=== PATIENT | male | born 1960 | race Caucasian/White ===

== ENCOUNTER 2018-05-03 00:27 | Inpatient (IN) | payer BC ==
[2018-05-03] MEDS ORDERED: Ondansetron INJ* 2 MG/ML VIAL IV ONE (01:20)
[2018-05-03] MEDS ORDERED: Morphine VIAL* 10 MG/ML 1 ML VIAL IV ONE (01:20)
--- NOTE | 2018-05-03 01:28 | ED ---
Abdominal Pain/Male - HPI Summary HPI Summary: The pt is a 57 year old male presenting to the ED BIBA with a chief complaint of ABD pain onset about 2200. The pt has a hx of GERD and responds to pepto, but he now has pain in his RUQ described as tearing down to the RLQ when he lies in a horizontal position. When he stood or sat up, it was not so bad but it did hurt. Presently, the pt is nauseous, uncomfortable, restless, and afraid to lie down flat. The pt denies vomiting, blood in urine or stool, problems urinating, headaches, or dizziness, as well as abdominal surgery. - History of Current Complaint Chief Complaint: EDAbdPain Stated Complaint: ABD PAIN Time Seen by Provider: 05/03/18 00:42 Hx Obtained From: Patient Onset/Duration: Sudden Onset, Lasting Hours, Still Present Timing: Constant Severity Initially: Severe Severity Currently: Severe Pain Intensity: 9 Pain Scale Used: 0-10 Numeric Location: Discrete At: RUQ Radiates: Yes Radiates to: RLQ Character: Tearing Aggravating Factor(s): Other: - lying horizontally Alleviating Factor(s): Position - sitting up Associated Signs And Symptoms: Negative: Dizzy, Blood in Stool, Urinary Symptoms , Vomiting, Penile Discharge - Allergies/Home Medications Allergies/Adverse Reactions: Allergies Allergy/AdvReac Type Severity Reaction Status Date / Time erythromycin base Allergy Unknown Verified 05/03/18 05:40 Reaction Details Home Medications: Home Medications NK [No Home Medications Reported] 05/03/18 [History Confirmed 05/03/18] PMH/Surg Hx/FS Hx/Imm Hx Previously Healthy: Yes Endocrine/Hematology History: Denies: Hx Diabetes, Hx Thyroid Disease Cardiovascular History: Reports: Hx Hypertension Respiratory History: Denies: Hx Asthma, Hx Chronic Obstructive Pulmonary Disease (COPD) GI History: Denies: Hx Ulcer - Surgical History Surgery Procedure, Year, and Place: LIVER BIOPSY Infectious Disease History: No Infectious Disease History: Denies: Hx Hepatitis, Hx Human Immunodeficiency Virus (HIV), Traveled Outside the [place] in Last 30 Days - Family History Known Family History: Positive: Hypertension - Social History Alcohol Use: None Substance Use Type: Reports: None Smoking Status (MU): Never Smoked Tobacco Have You Smoked in the Last Year: No Review of Systems Negative: Fever Positive: Abdominal Pain, Nausea. Negative: Vomiting Negative: hematuria Negative: Headache All Other Systems Reviewed And Are Negative: Yes Physical Exam - Summary Physical Exam Summary: Appearance: Well-appearing, Well-nourished, lying in bed comfortably Skin: Warm, dry, no obvious rash Eyes: sclera anicteric, no conjunctival pallor ENT: mucous membranes moist, pharynx appears normal Neck: Supple, nontender Respiratory: Clear to auscultation, no signs of respiratory distress Cardiovascular: Normal S1, S2. No murmurs. Normal distal pulses in tibial and radial bilaterally. Abdomen: Soft, some RLQ tenderness, no peritoneal signs, normal active bowel sounds present Musculoskeletal: Normal, Strength/ROM Intact Neurological: A&Ox3, awake and alert, mentation is normal, speech is fluent and appropriate Psychiatric: affect is normal, does not appear anxious or depressed Triage Information Reviewed: Yes Vital Signs On Initial Exam: Initial Vitals Temp Pulse Resp BP Pulse Ox 97.4 F 86 20 151/87 97 05/03/18 00:32 05/03/18 00:32 05/03/18 00:32 05/03/18 00:32 05/03/18 00:32 Vital Signs Reviewed: Yes Diagnostics - Vital Signs Vital Signs Temp Pulse Resp BP Pulse Ox 05/03/18 00:32 97.4 F 86 20 151/87 97 - Laboratory Result Diagrams: 05/03/18 01:26 05/03/18 01:26 Lab Statement: Any lab studies that have been ordered have been reviewed, and results considered in the medical decision making process. - CT ABD/PELV CT Interpretation: Positive (See Comments) - 1. Acute appendicitis. 2. Infiltrates in the lingula and lower lobes bilaterally. 3. Bilateral renal cysts. CT Interpretation Completed By: Radiologist - ED physician has reviewed this report. - EKG 0132 Cardiac Rate: NL - 91bpm EKG Rhythm: Sinus Rhythm ST Segment: Normal Ectopy: None Abdominal Pain Fem Course/Dx - Course Course Of Treatment: The pt is a 57 year old M presenting to the ED with abd pain that started as GERD and progressed into a tearing pain all down the R side of his abdomen that is much worse when he lies horizontally. Presently, the patient is nauseous, restless, and uncomfortable. - Diagnoses Provider Diagnoses: Appendicitis Discharge - Sign-Out/Discharge Documenting (check all that apply): Patient Departure - Discharge Plan Condition: Stable Disposition: ADMITTED TO [facility] - Billing Disposition and Condition Condition: STABLE Disposition: Admitted to [facility] - Attestation Statements Document Initiated by Everett: Yes Documenting Scribe: Natalie Uribe Provider For Whom Everett is Documenting (Include Credential): Nate Martinez MD. Scribe Attestation: Natalie Perea, [email or web address] for Nate Martinez MD. on 05/03/18 at 0645. Scribe Documentation Reviewed: Yes Provider Attestation: The documentation as recorded by the Natalie salgado accurately reflects the service I personally performed and the decisions made by me, Nate Martinez MD. Consult Consult: 3012 - Spoke to Melo Trevino MD., about the patient's current disposition. The pt is stable for admission, and Dr. Trevino will be accepting him to perform the appendectomy.
[2018-05-03 01:36] LABS: ABS Basophils 0 10^3/ul (0-0.2); ABS Eosinophils 0 10^3/ul (0-0.6); ABS Lymphocytes 0.7 10^3/ul (1.0-4.8); ABS Monocytes 0.9 10^3/ul (0-0.8); ABS Neutrophils 13.1 10^3/ul (1.5-7.7); ABS Nucleated RBC 0 10^3/ul; Eosinophil % 0.1 % (0-6); Hematocrit 43 % (42-52); Hemoglobin 14.5 g/dl (14.0-18.0); Lymphocyte % 4.8 % (25-47); Mean Corpuscular HGB Conc 33 g/dl (31-36); Mean Corpuscular Hemoglobin 29 pg (27-31); Mean Corpuscular Volume 87 fL (80-94); Nucleated Red Blood Cells % 0; Platelet Count 227 10^3/ul (150-450); Red Blood Count 4.99 10^6/ul (4.00-5.40); Red Cell Distribution Width 14 % (10.5-15); White Blood Count 14.8 10^3/ul (3.5-10.8)
[2018-05-03] MEDS ORDERED: Morphine INJ* 4 MG/ML 1 ML SYRINGE (NEW SYRINGE VERSION) ONE (01:43)
[2018-05-03] MEDS ORDERED: Iohexol 300* (CONTRAST) 10 ML SDV IV ONE (02:24)
[2018-05-03] MEDS ORDERED: Piperacillin/Tazobac ADVAN(*) 3.375 GM in NS 0.9% 100 ML* 100 ML IVPB ONE (04:43)
--- NOTE | 2018-05-03 05:01 | RAD ---
EXAM: CT Abdomen and Pelvis With Intravenous Contrast CLINICAL HISTORY: 57 years old, male; Pain; Abdominal pain; Flank; Right; Additional info: Right sided abd pain TECHNIQUE: Axial computed tomography images of the abdomen and pelvis with intravenous contrast. All CT scans at this facility use at least one of these dose optimization techniques: automated exposure control; mA and/or kV adjustment per patient size (includes targeted exams where dose is matched to clinical indication); or iterative reconstruction. Coronal and sagittal reformatted images were created and reviewed. CONTRAST: 100 mL of OMNI 300 administered intravenously. COMPARISON: LIVER US LIVER 09/25/2016 9:17 AM FINDINGS: Lung bases: Infiltrates are seen in the lower lobes bilaterally and in the lingula. ABDOMEN: Liver: Unremarkable. No mass. Gallbladder and bile ducts: Unremarkable. No calcified stones. No ductal dilation. Pancreas: Unremarkable. No mass. No ductal dilation. Spleen: Unremarkable. No splenomegaly. Adrenals: Unremarkable. No mass. Kidneys and ureters: There is a left renal cyst measuring 2.6 cm. There are 2 low density lesions in the right kidney, probably cysts. The larger one measures 8 mm. Stomach and bowel: Unremarkable. No obstruction. No mucosal thickening. PELVIS: Appendix: The appendix is dilated with a diameter of 1.8 cm. The appendiceal wall is abnormally thickened. There is distention of the lumen of the appendix. Appendicoliths are demonstrated. There is periappendiceal haziness consistent with acute appendicitis. Bladder: Unremarkable. No mass. Reproductive: Unremarkable as visualized. ABDOMEN and PELVIS: Intraperitoneal space: Unremarkable. No free air. No significant fluid collection. Bones/joints: Degenerative disc disease is demonstrated at L5-S1. No acute fracture. No dislocation. Soft tissues: Unremarkable. Vasculature: Unremarkable. No abdominal aortic aneurysm. Lymph nodes: Unremarkable. No enlarged lymph nodes. IMPRESSION: Acute appendicitis. Infiltrates in the lingula and lower lobes bilaterally. Bilateral renal cysts. Findings were discussed with ROBBY TOLEDO at 05/03/2018 5:00 AM EDT. To contact [facility] with a general question: [facility] - [phone] For direct physician to physician contact: Physician Hotline - [phone] [facility] ([facility] Facility ID #[id number])
[2018-05-03] MEDS: NS 0.9% 1000 ML* 2,000 ML IV ONE ×2 (05:38→07:25)
[2018-05-03] MEDS ORDERED: Metoclopramide IV* 5 MG/ML 2 ML VIAL IV PRN (07:23)
[2018-05-03] MEDS ORDERED: Morphine INJ* 4 MG/ML 1 ML SYRINGE (NEW SYRINGE VERSION) IV PRN (07:23)
--- NOTE | 2018-05-03 08:44 | HP ---
H&P (Free Text) History and Physical: Full H and P dictated PMH: chronic fatigue Meds: none Dx: acute appendicitis Plan: laparoscopic appendectomy
[2018-05-03] MEDS ORDERED: Bupivacaine 0.25% EPI 200,000* 30 ML SDV ONE (09:23)
[2018-05-03] MEDS ORDERED: Ondansetron INJ* 2 MG/ML VIAL ONE (09:29)
[2018-05-03] MEDS ORDERED: Ketorolac INJ* 30 MG/ML 1 ML VIAL ONE (09:29)
[2018-05-03] MEDS ORDERED: Cisatracurium* 2 MG/ML MDV 5 ML ONE (09:29)
[2018-05-03] MEDS ORDERED: Lidocaine 2% PF * 5 ML VIAL ONE (09:29)
[2018-05-03] MEDS ORDERED: Propofol* 10 MG/ML 20 ML BTL IV PUSH ONE (09:29)
[2018-05-03] MEDS ORDERED: fentaNYL* 50 MCG/ML 2 ML VIAL (100 MCG VIAL) ONE (09:29)
[2018-05-03] MEDS ORDERED: Dexamethasone IV* 4 MG/ML 1 ML (4 MG) ONE (09:29)
[2018-05-03] MEDS ORDERED: Midazolam* 1 MG/ML 5 ML VIAL (5 MG) ONE (09:29)
--- NOTE | 2018-05-03 10:44 | HP ---
CC: Dr. Thanh Gunn; [facility] HISTORY AND PHYSICAL: DATE OF ADMISSION: 05/03/18 CHIEF COMPLAINT: Abdominal pain. HISTORY OF PRESENT ILLNESS: Mr. Ha is a 57-year-old gentleman who presented to the emergency ro om in the overnight. I was contacted after workup including CT scan and labs were suggestive of acut e appendicitis. I admitted him to my service and saw him this morning. The patient describes a greater than 1-day history of right flank pain, mostly right upper and right lower quadrant pain, started abruptly. It was accompanied with nausea but no vomiting. Decreased ap petite, unable to get comfortable. The patient denies any previous similar symptoms. Pain is reliev ed on lying with his back up and staying still. The patient denies any fevers or chills. PAST MEDICAL HISTORY: Chronic fatigue syndrome. PAST SURGICAL HISTORY: Orthopedic surgery. No abdominal surgeries. HOME MEDICATIONS: None. ALLERGIES: ERYTHROMYCIN. FAMILY HISTORY: Noncontributory. SOCIAL HISTORY: Nonsmoker. He smokes marijuana once in awhile. He is nonworking secondary to his d iagnosis. He lives with his . REVIEW OF SYSTEMS: No shortness breath or chest pain. Abdominal pain as described. No dysuria. No change in bowel habits. No bloody bowel movements. No bleeding or clotting disorders. No endocrin e disorders. No psychiatric illnesses. Neurologic symptoms as described above. PHYSICAL EXAMINATION GENERAL: Alert and oriented x3, in no apparent distress. VITAL SIGNS: Temperature 99.8, heart rate 92, blood pressure 125/81. HEENT: Normocephalic, atraumatic. Sclerae are anicteric. Mucous membranes are moist. NECK: No lymphadenopathy. LUNGS: Clear to auscultation bilaterally. HEART: S1, S2. No murmurs. ABDOMEN: Tense, tender on deep palpation without rebound, mostly at the right side and the suprapubi c area. No hernias or masses. No tenderness to percussion. EXTREMITIES: Within normal limits. RECTAL: Exam is not performed. DIAGNOSTIC STUDIES/LAB DATA: Labs reviewed. White count 14.8 with a left shift. Chemistry panel sh ows normal LFTs. CT scan reviewed and consistent with a dilated appendix of 1.8 cm, abnormally thickened. Appendicoli ths are demonstrated. I believe there is likely a small abscess within this but this was not read as such. IMPRESSION: Acute appendicitis with possible perforation. RECOMMENDATION: Laparoscopic appendectomy. I outlined the details of the procedure, going over the risks, benefits, and alternatives. The patient agrees to proceed. We spoke with the possible compli cations, which include but not limited to bleeding, infection, bowel injury or bladder injury, need f or additional procedures, need for open procedures, abscess formation, possibility of colectomy. The patient's questions were answered and consent was signed. He is receiving antibiotics. He will yobani in on n.p.o. status along with IV fluids. [id number]/[facility] #: [id number]
[2018-05-03] MEDS ORDERED: Famotidine IV* 10 MG/ML 2 ML (20 mg) ONE (10:59)
[2018-05-03] MEDS ORDERED: Naloxone* 0.4 MG/ML 1 ML VIAL IV PRN (11:17)
[2018-05-03] MEDS ORDERED: fentaNYL* 50 MCG/ML 2 ML VIAL (100 MCG VIAL) IV PRN (11:17)
[2018-05-03] MEDS ORDERED: Ondansetron INJ* 2 MG/ML VIAL IV PRN (11:17)
--- NOTE | 2018-05-03 12:20 | BRIEFOPN ---
Brief Operative Note - Surgery Procedures: Procedures Pre-OP Diagnoses: acute appendicitis Post-op Diagnosis: perforated appendicitis with contained abscess Procedure: Laparoscopic appendectomy Surgeon: Belinda Asst: none Anethesia: CARLINE EBL: minimal IVF: crystalloid Specimen: appendix Drains: #7 Omar
[2018-05-03] MEDS: ZOSYN 3.375 GM Q6H IVPB SCH ×6 (13:38→23:05)
[2018-05-03] MEDS ORDERED: oxyCODONE/Acetamin 5/325 MG* TAB PO PRN (14:28)
[2018-05-03] MEDS: NS 0.9% 1000 ML* 1,000 ML IV SCH (19:49)
--- NOTE | 2018-05-04 01:29 | OP ---
DATE OF OPERATION: 05/03/18 - ROOM #338 DATE OF : 62 SURGEON: Melo Trevino MD BLOCK TRIMMER: None. ANESTHESIOLOGIST: Dr. Corral. ANESTHESIA: General. PRE-OP DIAGNOSIS: Acute appendicitis. POST-OP DIAGNOSIS: Acute perforated appendicitis with localized abscess. OPERATIVE PROCEDURE: Laparoscopic appendectomy. ESTIMATED BLOOD LOSS: Minimal. FLUIDS: Minimal crystalloid fluid given. SPECIMEN: Appendix. DRAINS: #7 DIEGO drain left in the side of the abscess in the right lower quadrant. DESCRIPTION OF PROCEDURE: The patient was identified in the preoperative area, marked, consent was signed. Case was discussed with him again. He was brought to the operating room, placed on the operating table in supine position. Preoperative antibiotics were given. Sequential devices were placed on bilateral lower extremities. General anesthesia was induced. The patient's abdomen was clipped of hair and prepped and draped in the standard surgical fashion. A time-out was performed. Infraumbilical incision was made. The skin edges were elevated and a Veress needle inserted into the abdominal cavity, which was then allowed to insufflate to a pressure of 15 mmHg. The patient tolerated the insufflation well. Veress needle was removed and a 12-mm trocar was inserted through this site. Laparoscope was inserted and there was no evidence of injury from the trocar insertion. No bleeding. Bowel appeared within normal limits. We placed the patient in a Trendelenburg and then we could see inflamed small bowel extending towards the adhesions to the right lower quadrant. Additional trocars were then placed in the following position: A 5-mm in the suprapubic area and a 5- mm in the left lower quadrant. Attention was turned towards the appendix. We saw the tip was inflamed and thickened and difficult to manipulate. The small bowel was retracted out of the pelvis. Murky fluid was identified in the pelvis. Next, a portion of the small that was adhered to the lateral was taken down with sharp dissection so we could see the area of the appendix better. The ligament of Treitz was identified and grasped and additional blunt dissection was carried out to free up the mid portion of the appendix from the cecum. Cecum was mildly inflamed as well. Next, the normal adhesions of the appendix to the lateral abdominal wall were taken down with scissors and electrocautery along with blunt dissection up towards the early portion of the cecal cap. This allowed us to bring the appendix into view and we did notice that the portion of that mid appendix was perforated and adhered to fold in the cecum. We cleared this up and removed pus as well as fecalith was taken with stone forceps. Additional dissection was carried out on the appendix to make a window at the base of the cecum through healthy tissue, although mildly inflamed. This was 2 to 3 cm away from the perforation of the appendix. A 45-mm purple JAYLA stapling device was fired across this. Next, additional blunt and sharp dissection was carried out to free the tip of the appendix from its mesentery and then the mesoappendix was taken properly with a 45- mm tena JAYLA stapling device. Appendix was placed in a retrieval bag and placed at the right upper quadrant. Review of the staple line at the cecum showed no splitting of the cecal fibers. It was intact. There was some bleeding noted on the staple line. This was sutured with a 2-0 silk suture. An additional silk suture was placed at the terminal ileum in the area that we felt required an additional stitch due to possible blunt dissection in this area. There was no full-thickness injury, however. Hemostasis was excellent. We irrigated the site of the abscess where the appendix had been and suctioned out the fluid. Next, we turned our attention to the pelvis. Additional murky fluid identified. We cultured this both aerobic and anaerobic, then suctioned out the fluid. We then turned our attention to above the liver. Additional murky fluid was aside of this area and additional blunt dissection was carried out at the distal cecum/ascending colon to free up the lateral side where there was some additional murky fluid. Next, additional suctioning and irrigation was used on the distal ileal loops that were quite injected. There was no debris, no fecalith, and at this point, we placed a #7 DIEGO drain and placed it at the site of the surgery and brought it out through the suprapubic site. This was sutured to the skin with 3-0 Prolene suture. Next, the appendix was removed with the endoscopic retrieval bag through the umbilical port site. This was minimally dilated to get it out. We then irrigated the wound and reapproximated at the fascial layer with an 0 Polysorb suture using an Endo Close device. The abdomen was allowed to collapse. The last trocar was removed under direct vision and we closed the additional two incisions with 4-0 Monocryl subcuticular sutures. Steri-Strips and sterile dressing were applied. The patient tolerated the procedure well, was awoken up in the OR, and transferred to the PACU in stable condition. [id number]/[facility] #: [id number] [facility]
[2018-05-04] MEDS: NS 0.9% 1000 ML* 1,000 ML IV SCH (04:23)
[2018-05-04] MEDS: ZOSYN 3.375 GM Q6H IVPB SCH ×2 (04:27)
[2018-05-04 11:57] VITALS: BP 110/69
--- NOTE | 2018-05-04 14:42 | DS ---
CC: Dr. Baltazar Gunn * DATE OF ADMISSION: 05/03/2018. DATE OF DISCHARGE: 05/04/2018. ATTENDING SURGEON: Dr. Melo Trevino * (dictated by Nini Mccarty NP). HOSPITAL COURSE: Please refer to admission history and physical for admission details. The patient was taken to the operating room on 05/03/2018 and underwent laparoscopic appendectomy with placement of DIEGO drain for acute perforated appendicitis with localized abscess. He was placed on intravenous antibiotics and intravenous fluids and had an eventful postoperative course and required minimal pain medication and was able to tolerate a regular diet. He was ambulating in the halls and using his Inspiron. He was seen earlier this morning by Dr. Trevino and by myself and he met criteria for discharge. PHYSICAL EXAMINATION: General: In no acute distress. Vital Signs: Stable. He is afebrile and O2 saturation on room air is 97 percent. He has large urine output. Lungs: Breath sounds bilaterally clear and equal. Heart: Regular rate and rhythm. No murmurs or rubs appreciated. Abdomen: Laparoscopic port sites are intact with dressings which are clean and dry. There was no surrounding erythema. There are active bowel sounds and his abdomen is soft. There is a DIEGO drain intact with serosanguineous drainage. Extremities: Nontender calves, no edema. IMPRESSION: Doing well, status post laparoscopic appendectomy with placement of DIEGO drain. PLAN: Discharge home today. Instructions were reviewed with the patient. All of his questions were answered. He will have prescriptions for Augmentin 875 mg p.o. q.12 hours for five days and Oxycodone/acetaminophen as needed for pain. He will have DIEGO instruction prior to discharge and he has a follow-up appointment in our office with Dr. Trevino on , 05/07/2018. He knows to call sooner if he has any concerns. KERRY MCCARTY NP [id number]/[facility] #: [id number] MTDD
== END 2018-05-04 13:00 | disposition home or self-care (01) | DRG 225 ==
LOC: ED 00:27 → SSU 06:07
PROVIDERS: ADMIT Surgery; ATTEND Surgery
PROC: 0DTJ4ZZ Resection of Appendix, Percutaneous Endoscopic Approach (ICD-10-PCS; principal; 2018-05-03 10:45)
DX: K35.33 Acute appendicitis with perforation, localized peritonitis, and gangrene, with abscess (principal); R53.82 Chronic fatigue, unspecified; K21.9 Gastro-esophageal reflux disease without esophagitis; I10 Essential (primary) hypertension; F41.9 Anxiety disorder, unspecified; F32.9 Major depressive disorder, single episode, unspecified; I48.91 Unspecified atrial fibrillation; Z88.1 Allergy status to other antibiotic agents; Z56.0 Unemployment, unspecified; Z82.49 Family history of ischemic heart disease and other diseases of the circulatory system
CPT/HCPCS: 36415; 74177; 80053; 83605; 83690; 85025; 87070; 87073; 87077; 87186; 87205; 87640; 87641; 88304; 93005; 99285; C1776; J1100; J1885; J2250; J2270; J2405; J2543; J2704; J3010; Q9967

== ENCOUNTER → 2018-05-10 12:01 | Emergency (ER) | payer BC ==
[~2018-05-10 12:01] MED LIST: Iohexol 300* (CONTRAST) 10 ML SDV IV ONE
--- OUTSIDE RECORDS SUMMARY | 2018-05-10 12:14 | XMS REPORT ---
:1960 External Reference #:[id number] Author Organization [facility] Address [address] [place] [address] [place] [address] Phone [phone] Care Team Providers Name Role Phone Thanh Gunn MD Care Team Information Location And Measurement Technician Unavailable Thanh Gunn MD Primary Care Physician Unavailable Payers Type Date Identification Numbers Payment Provider Subscriber Commercial Effective: Policy Number: BS Of YOBANI Barba 2013 [id number] [place] PayID: [id number] [address] [address] [place] [address] Medigap Part B Expires: 2013 Policy Number: BS Of YOBANI Barba [id number] Vikash PayID: [id number] [address] [address] [place] [address] Problems Date Description Provider Status Onset: 08/28/2016 Paroxysmal atrial fibrillation Thanh Gunn M.D., DOMINIQUE Active Note: due to stimulants Onset: 08/28/2016 Nonalcoholic steatohepatitis Thanh Gunn M.D.,DOMINIQUE Active Note: mod-severe fibrosis on elastography Onset: 06/26/2007 Sleep apnea Thanh Gunn M.D., FACP Active Note: on CPAP Onset: 06/26/2007 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 Active Onset: 09/27/2014 Mixed hyperlipidemia Hung Llamas M.D. Active Onset: 12/14/2014 Raised prostate specific antigen Francisco Zamarripa M.D.,DOMINIQUE Note: borderline Onset: 06/26/2007 Atrial fibrillation Thanh Gunn M.D.,KURTP Inactive Inactive: 08/28/2016 Onset: 11/03/2015 Essential hypertension Thanh Gunn M.D.,FACP Inactive Inactive: 08/28/2016 Onset: 11/09/2008 Chronic hepatitis Thanh Gunn M.D.,FACP Inactive Inactive: 08/28/2016 Family History Date Family Member(s) Problem(s) Comments : (age 52 Father due to Heart Years) Disease Mother Cancer, Breast : (age 82 Mother due to Stroke Years) Mother Uterine Cancer Siblings 2 1 brother and 1 sister First Brother Hypertension First Brother Hypothyroidism First Sister Kidney Disease Paternal Uncles due to Prostate () Cancer Social History Type Date Description Comments Marital Status Lives With Occupation Disabled Cigarette Use Former Cigarette Smoker Smoked a few cigarettes per month for 35 years ETOH Use 11/06/2016 Denies alcohol use Recreational Drug Use Denies Drug Use Smoking Patient is a former smoker Daily Caffeine Consumes on average 3 cups of regular coffee per day Exercise Type/Frequency Does not exercise General Hx Text no children Allergies, Adverse Reactions, Alerts Date Description Reaction Status Severity Comments 06/26/2007 Erythromycin severe GI upset active 06/26/2007 NKDA inactive Medications Medication Date Status Form Strength Qnty SIG Indications Ordering Provider Pramipexole 11/13 Active Tablets 0.125mg 30tab 1 tab by G25.81 Kristen Dihydrochloride /2018 s mouth at Low, night, DNP, RN, pls read [employer] leaflet prior to use Vitamin E-400 11/06 Active Capsules 400Unit 1 po qd Nicolle Gunn M.D.,FACP Enalapril Maleate 09/25 Active Tablets 5mg 60tab take 1 I10 s tablet by Nicolle Gunn mouth M.DPower,FACP twice daily Cpap Mask And 05/20 Active Device cpap supplies Nicolle Gunn, - Jagjit,FAC headgear, cushion, tubing, filters, for sleep apnea dx 780.57 Ergocalciferol 02/01 Active Capsules [id number] 12cap 1 cap by s mouth Nicolle Gunn, once a M.D.,FACP week Cpap With 07/02 Active 1unit use 780.57 Thanh Humid s nightly Nicolle Gunn M.D.,FACP Joana Active Tablets 60mg 60tab Take 1 s Tablet By Nicolle Gunn Mouth Two M.DPower,FACP Times A Day as Needed Enalapril Maleate 06/19 Hx Tablets 5mg 60tab 1 by I10 s mouth bid Lora Lara M.D.,[facility] 09/25 Fluticasone 02/01 Hx Suspension 50mcg/Act 16uni Use 1 ts [place] In Nicolle Gunn, - Each M.DPower,[facility] 08/28 Nostril Daily Milk Thistle 08/27 Hx Capsules 150mg 60cap two times 571.9 s a day Lora Lara M.D.,[facility] 09/27 Fluticasone 06/26 Hx Suspension 50mcg/Act 16uni instill 1 Thanh ts spray to Nicolle Gunn, - affected M.D.,[facility] 02/01 nostril daily Savella Titration 06/03 Hx Misc 12.5&25&5 1pak as 268.9 Thanh 0mg directed Nicolle Gunn, - samples M.D.,[facility] 08/27 Savella Titration 08/21 Hx Misc 12.5&25&5 1pak as 780.79 0mg directed Nicolle Gunn, - samples MVera,[facility] 06/03 Amoxicillin 07/25 Hx Tablets 500mg 28tab 2 tabs po s bid for 7 D. Luis A, - days MVera,[facility] 08/01 Ergocalciferol 12/08 Hx Capsules [id number] 12cap by mouth s 2x/mon Nicolle Gunn, - Jagjit,[facility] 02/01 Enalapril Maleate 02/02 Hx Tablets 5mg 60tab take 1 I10 s tablet by Nicolle Gunn, - mouth Jagjit,[facility] 06/19 daily Enalapril Maleate 11/09 Hx Tablets 2.5mg 60tab 1 po bid 401.1 s Lora Lara M.D.,[facility] 02/02 Strattera 05/11 Hx Capsules 25mg 14cap po every 314.00 s day Lora Lara M.D.,[facility] 11/09 Strattera Hx Capsules 40mg 30cap PO qAM s Lora Lara M.D.,[facility] 05/11 Metoprolol Hx Tablets ER 25mg 90tab 1 PO bid 401.1 s Lora Lara M.D.,[facility] 11/09 Flonase Hx Suspension 50mcg/Act 16uni Darfur One ts Darfur In Nicolle Gunn, - The Jagjit,[facility] 06/26 Nostril Every Day Amoxicillin/Clavu Hx Tablets 875-125mg lexi Hess Potassium Be Chow MD 07/25 Vitamin E Hx Capsules 200Unit 1 po qd 571.9 Unknown /0000 - 08/27 Hydrocortisone Hx Cream 0.2% 60uni topical Valerate / ts twice Nicolle Gunn, - daily to Jagjit,[facility] 11/06 area needed Lansoprazole Hx Capsules DR 30mg 30cap Take One K21.9 Davon /0000 s Capsule Kathy [employer] DIPPER - By Mouth 11/02 Every /2015 Cipro Hx Tablets 500mg Unknown /0000 - 08/28 Immunizations CPT Code Status Date Vaccine Lot # [id number] Given 06/03/2013 Flu Vaccine Split Virus Preservative Free For 1345 4p Indiv 3Yr Older [id number] Given 06/11/2007 Flu Vac (History By Patient> Vital Signs Date Vital Result Comment 05/07/2018 Height 72 inches 6'0" Weight 205.00 lb Heart Rate 84 /min BP Systolic 128 mmHg BP Diastolic 78 mmHg Respiratory Rate 18 /min Body Temperature 97.6 F BMI (Body Mass Index) 27.8 kg/m2 11/13/2017 Height 72 inches 6'0" Weight 201.00 lb Heart Rate 76 /min BP Systolic Sitting 124 mmHg BP Diastolic Sitting 76 mmHg Respiratory Rate 14 /min O2 % BldC Oximetry 96 % BMI (Body Mass Index) 27.3 kg/m2 Neck Circumference in inches 16 10/03/2017 Weight 204.00 lb Heart Rate 65 /min BP Systolic 138 mmHg BP Diastolic 76 mmHg Body Temperature 97.4 F O2 % BldC Oximetry 97 % 11/06/2016 Height 73 inches 6'1" Weight 193.38 lb Heart Rate 73 /min BP Systolic Sitting 142 mmHg BP Diastolic Sitting 86 mmHg BP Systolic Recheck 118 mmHg BP Diastolic Recheck 88 mmHg Body Temperature 96.9 F O2 % BldC Oximetry 98 % BMI (Body Mass Index) 25.5 kg/m2 08/28/2016 Height 73 inches 6'1" Weight 194.00 lb Heart Rate 70 /min BP Systolic Sitting 124 mmHg BP Diastolic Sitting 81 mmHg Body Temperature 98.0 F O2 % BldC Oximetry 98 % BMI (Body Mass Index) 25.6 kg/m2 11/03/2015 Height 73 inches 6'1" Weight 206.00 lb Heart Rate 68 /min BP Systolic Sitting 135 mmHg BP Diastolic Sitting 85 mmHg Body Temperature 96.9 F O2 % BldC Oximetry 97 % BMI (Body Mass Index) 27.2 kg/m2 12/14/2014 BP Systolic Sitting 140 mmHg BP Diastolic Sitting 90 mmHg 12/14/2014 Height 73 inches 6'1" Weight 215.50 lb Heart Rate 96 /min BP Systolic Sitting 140 mmHg BP Diastolic Sitting 90 mmHg Body Temperature 98.0 F O2 % BldC Oximetry 98 % BMI (Body Mass Index) 28.4 kg/m2 09/27/2014 Height 73 inches 6'1" Weight 215.50 lb Heart Rate 60 /min BP Systolic Sitting 126 mmHg BP Diastolic Sitting 90 mmHg Body Temperature 96.4 F O2 % BldC Oximetry 96 % BMI (Body Mass Index) 28.4 kg/m2 08/27/2013 Height 73 inches 6'1" Weight 210.00 lb Heart Rate 72 /min BP Systolic Sitting 118 mmHg BP Diastolic Sitting 78 mmHg BMI (Body Mass Index) 27.7 kg/m2 06/03/2013 Weight 208.25 lb Heart Rate 66 /min BP Systolic Sitting 130 mmHg BP Diastolic Sitting 84 mmHg Body Temperature 96.3 F O2 % BldC Oximetry 98 % 08/21/2012 Height 73 inches 6'1" Weight 205.00 lb Heart Rate 80 /min BP Systolic Sitting 130 mmHg BP Diastolic Sitting 96 mmHg BMI (Body Mass Index) 27.0 kg/m2 07/02/2012 Height 73 inches 6'1" Weight 209.50 lb Heart Rate 78 /min BP Systolic Sitting 120 mmHg BP Diastolic Sitting 86 mmHg BMI (Body Mass Index) 27.6 kg/m2 11/27/2011 Height 73 inches 6'1" Weight 211.25 lb Heart Rate 80 /min BP Systolic Sitting 120 mmHg BP Diastolic Sitting 90 mmHg BMI (Body Mass Index) 27.9 kg/m2 02/21/2011 Weight 203.00 lb Heart Rate 60 /min BP Systolic Sitting 120 mmHg BP Diastolic Sitting 94 mmHg 06/18/2010 Weight 208.00 lb Heart Rate 78 /min BP Systolic Sitting 126 mmHg BP Diastolic Sitting 90 mmHg 05/04/2010 Weight 210.00 lb Heart Rate 73 /min BP Systolic Sitting 118 mmHg BP Diastolic Sitting 80 mmHg 12/27/2009 Height 72 inches 6'0" Weight 202.00 lb Heart Rate 74 /min BP Systolic Sitting 120 mmHg BP Diastolic Sitting 84 mmHg BMI (Body Mass Index) 27.4 kg/m2 05/26/2009 Height 72 inches 6'0" Weight 203.00 lb Heart Rate 88 /min BP Systolic Sitting 122 mmHg BP Diastolic Sitting 80 mmHg BMI (Body Mass Index) 27.5 kg/m2 02/09/2009 Height 72 inches 6'0" Weight 202.75 lb Heart Rate 64 /min BP Systolic Sitting 120 mmHg BP Diastolic Sitting 90 mmHg Respiratory Rate /min BMI (Body Mass Index) 27.5 kg/m2 11/09/2008 Height 72 inches 6'0" Weight 200.00 lb Heart Rate 64 /min BP Systolic Sitting 120 mmHg BP Diastolic Sitting 80 mmHg BMI (Body Mass Index) 27.1 kg/m2 05/11/2008 Height 72 inches 6'0" Weight 198.00 lb Heart Rate 68 /min BP Systolic Sitting 138 mmHg BP Diastolic Sitting 76 mmHg BMI (Body Mass Index) 26.9 kg/m2 02/22/2008 Height 72 inches 6'0" Weight 201.00 lb Heart Rate 72 /min BP Systolic Sitting 132 mmHg BP Diastolic Sitting 84 mmHg BMI (Body Mass Index) 27.3 kg/m2 12/25/2007 Height 72 inches 6'0" Heart Rate 76 /min BP Systolic Sitting 122 mmHg BP Diastolic Sitting 76 mmHg 11/18/2007 Height 72 inches 6'0" Weight 196.00 lb Heart Rate 74 /min BP Systolic Sitting 120 mmHg BP Diastolic Sitting 76 mmHg BMI (Body Mass Index) 26.6 kg/m2 06/26/2007 Height 72 inches 6'0" Weight 197.00 lb Heart Rate 70 /min BP Systolic Sitting 124 mmHg BP Diastolic Sitting 76 mmHg BMI (Body Mass Index) 26.7 kg/m2 Results Test Date Test Result H/L Range Note Laboratory test 05/03/2018 Surgical Pathology SEE RESULT BELOW 1 finding CBC Auto Diff 05/03/2018 White Blood Count 14.8 10^3/uL High 3.5-10.8 Red Blood Count 4.99 10^6/uL 4.00-5.40 Hemoglobin 14.5 g/dL 14.0-18.0 Hematocrit 43 % 42-52 Mean Corpuscular Volume 87 fL 80-94 Mean Corpuscular Hemoglobin 29 pg 27-31 Mean Corpuscular HGB Conc 33 g/dL 31-36 Red Cell Distribution Width 14 % 10.5-15 Platelet Count 227 10^3/uL 150-450 Mean Platelet Volume 8.0 um3 7.4-10.4 Abs Neutrophils 13.1 10^3/uL High 1.5-7.7 Abs Lymphocytes 0.7 10^3/uL Low 1.0-4.8 Abs Monocytes 0.9 10^3/uL High 0-0.8 Abs Eosinophils 0 10^3/uL 0-0.6 Abs Basophils 0 10^3/uL 0-0.2 Abs Nucleated RBC 0 10^3/uL Granulocyte % 88.4 % High 38-83 Lymphocyte % 4.8 % Low 25-47 Monocyte % 6.4 % 0-7 Eosinophil % 0.1 % 0-6 Basophil % 0.3 % 0-2 Nucleated Red Blood Cells % 0 Laboratory test finding 05/03/2018 Lactic Acid 1.5 mmol/L 0.5-2.0 2 Comp Metabolic Panel 05/03/2018 Sodium 139 mmol/L 135-145 Potassium 4.2 mmol/L 3.5-5.0 Chloride 104 mmol/L 101-111 Co2 Carbon Dioxide 27 mmol/L 22-32 Anion Gap 8 mmol/L 2-11 Glucose 139 mg/dL High 70-100 Blood Urea Nitrogen 13 mg/dL 6-24 Creatinine 1.09 mg/dL 0.67-1.17 BUN/Creatinine Ratio 11.9 8-20 Calcium 9.2 mg/dL 8.6-10.3 Total Protein 7.3 g/dL 6.4-8.9 Albumin 4.3 g/dL 3.2-5.2 Globulin 3.0 g/dL 2-4 Albumin/Globulin Ratio 1.4 1-3 Total Bilirubin 0.60 mg/dL 0.2-1.0 Alkaline Phosphatase 61 U/L 34-104 Alt 45 U/L 7-52 Ast 27 U/L 13-39 Egfr Non- 70.0 >60 Egfr 84.7 >60 3 Laboratory test finding 05/03/2018 Lipase < 10 U/L Low 11.0-82.0 CBC Auto Diff 11/13/2017 White Blood Count 8.6 10^3/uL 3.5-10.8 Red Blood Count 5.23 10^6/uL 4.0-5.4 Hemoglobin 16.2 g/dL 14.0-18.0 Hematocrit 47 % 42-52 Mean Corpuscular Volume 90 fL 80-94 Mean Corpuscular Hemoglobin 31 pg 27-31 Mean Corpuscular HGB Conc 35 g/dL 31-36 Red Cell Distribution Width 13 % 10.5-15 Platelet Count 253 10^3/uL 150-450 Mean Platelet Volume 8.5 um3 7.4-10.4 Abs Neutrophils 4.9 10^3/uL 1.5-7.7 Abs Lymphocytes 2.6 10^3/uL 1.0-4.8 Abs Monocytes 0.8 10^3/uL 0-0.8 Abs Eosinophils 0.3 10^3/uL 0-0.6 Abs Basophils 0.1 10^3/uL 0-0.2 Abs Nucleated RBC 0 10^3/uL Granulocyte % 57.0 % 38-83 Lymphocyte % 29.7 % 25-47 Monocyte % 9.1 % High 0-7 Eosinophil % 3.5 % 0-6 Basophil % 0.7 % 0-2 Nucleated Red Blood Cells % 0 Laboratory test finding 11/13/2017 Ferritin 48.4 ng/mL 24-336 Iron & Iron Binding Capacity 11/13/2017 Iron 83 g/dL 50-212 Unsaturated Iron Binding 278 g/dL Total Iron Binding Capacity 361 g/dL 250-450 Transferrin 258 mg/dL 203-362 % Iron Saturation 23 % 15-55 Lipid Profile (Trig/Chol/HDL) 10/13/2017 Triglycerides 112 mg/dL 4 Cholesterol 212 mg/dL 5 HDL Cholesterol 30.5 mg/dL 6 LDL Cholesterol 159 mg/dL 7 Laboratory test finding 10/13/2017 Vitamin D Total 25(Oh) 31.0 ng/mL 20- 50 Comp Metabolic Panel 10/13/2017 Sodium 139 mmol/L 133-145 Potassium 4.4 mmol/L 3.5-5.0 Chloride 106 mmol/L 101-111 Co2 Carbon Dioxide 29 mmol/L 22-32 Anion Gap 4 mmol/L 2-11 Glucose 88 mg/dL 70-100 Blood Urea Nitrogen 17 mg/dL 6-24 Creatinine 1.06 mg/dL 0.67-1.17 BUN/Creatinine Ratio 16.0 8-20 Calcium 9.2 mg/dL 8.6-10.3 Total Protein 6.7 g/dL 6.4-8.9 Albumin 4.2 g/dL 3.2-5.2 Globulin 2.5 g/dL 2-4 Albumin/Globulin Ratio 1.7 1-3 Total Bilirubin 0.50 mg/dL 0.2-1.0 Alkaline Phosphatase 51 U/L 34-104 Alt 39 U/L 7-52 Ast 21 U/L 13-39 Egfr Non- 72.5 >60 Egfr 93.3 >60 8 Thyroid Function Inyo 10/13/2017 Thyroid Stim Hormone 2.5 mIU/L 0.3- 4.2 9 CBC Auto Diff 10/13/2017 White Blood Count 6.2 10^3/uL 3.5-10.8 Red Blood Count 4.87 10^6/uL 4.0-5.4 Hemoglobin 15.2 g/dL 14.0-18.0 Hematocrit 44 % 42-52 Mean Corpuscular Volume 90 fL 80-94 Mean Corpuscular Hemoglobin 31 pg 27-31 Mean Corpuscular HGB Conc 35 g/dL 31-36 Red Cell Distribution Width 13 % 10.5-15 Platelet Count 217 10^3/uL 150-450 Mean Platelet Volume 8 um3 7.4-10.4 Abs Neutrophils 3.4 10^3/uL 1.5-7.7 Abs Lymphocytes 1.8 10^3/uL 1.0-4.8 Abs Monocytes 0.6 10^3/uL 0-0.8 Abs Eosinophils 0.4 10^3/uL 0-0.6 Abs Basophils 0.1 10^3/uL 0-0.2 Abs Nucleated RBC 0 10^3/uL Granulocyte % 54.1 % 38-83 Lymphocyte % 29.5 % 25-47 Monocyte % 9.2 % High 0-7 Eosinophil % 6.2 % High 0-6 Basophil % 1.0 % 0-2 Nucleated Red Blood Cells % 0.3 Liver Fibrosis Panel Fibrosure 09/04/2016 Fibrosis Score 0.24 Fibrosis Stage F0-F1 Fibrosis Interpretation See Comment 10 Necroinflammat Activity Score 0.33 Necroinflammat Activity Grade A1 Necroinflammat Interpretation See Comment 11 Alpha 2 Macroglobulins, Qn 168 mg/dL 106-279 Haptoglobin 150 mg/dL 43-212 Apolipoprotein A-1 103 mg/dL 94-176 Bilirubin, Total 0.5 mg/dL 0.2-1.2 GGT 24 U/L 3-95 Alt (SGPT) 59 U/L 9-46 Reference Id [id number] Footnote See Comment 12 Iron & Iron Binding Capacity 09/04/2016 Iron 119 g/dL 50-212 Unsaturated Iron Binding 211 g/dL Total Iron Binding Capacity 330 g/dL 250-450 % Iron Saturation 36 % 15-55 Laboratory test finding 09/04/2016 Ferritin 62.8 ng/mL 24-336 Copper, Serum 1.03 g/mL 0.75-1.45 13 Smooth Muscle Antibody Negative Negative 14 Laboratory test finding 08/30/2016 Vitamin D Total 25(Oh) 40.2 ng/mL 30- 50 Lipid Profile (Trig/Chol/HDL) 08/30/2016 Triglycerides 97 mg/dL 15 Cholesterol 222 mg/dL 16 HDL Cholesterol 32.7 mg/dL 17 LDL Cholesterol 170 mg/dL 18 Comp Metabolic Panel 08/30/2016 Sodium 137 mmol/L 133-145 Potassium 4.8 mmol/L 3.5-5.0 Chloride 104 mmol/L 101-111 Co2 Carbon Dioxide 30 mmol/L 22-32 Anion Gap 3 mmol/L 2-11 Glucose 88 mg/dL 70-100 Blood Urea Nitrogen 17 mg/dL 6-24 Creatinine 1.13 mg/dL 0.67-1.17 BUN/Creatinine Ratio 15.0 8-20 Calcium 9.4 mg/dL 8.6-10.3 Total Protein 7.0 g/dL 6.4-8.9 Albumin 4.4 g/dL 3.2-5.2 Globulin 2.6 g/dL 2-4 Albumin/Globulin Ratio 1.7 1-3 Total Bilirubin 0.70 mg/dL 0.2-1.0 Alkaline Phosphatase 54 U/L 34-104 Alt 115 U/L High 7-52 Ast 61 U/L High 13-39 Egfr Non- 67.6 >60 Egfr 87.0 >60 19 CBC Auto Diff 08/30/2016 White Blood Count 6.8 10^3/uL 3.5-10.8 Red Blood Count 5.16 10^6/uL 4.0-5.4 Hemoglobin 15.7 g/dL 14.0-18.0 Hematocrit 47 % 42-52 Mean Corpuscular Volume 90 fL 80-94 Mean Corpuscular Hemoglobin 30 pg 27-31 Mean Corpuscular HGB Conc 34 g/dL 31-36 Red Cell Distribution Width 13 % 10.5-15 Platelet Count 214 10^3/uL 150-450 Mean Platelet Volume 9 um3 7.4-10.4 Abs Neutrophils 4.0 10^3/uL 1.5-7.7 Abs Lymphocytes 1.8 10^3/uL 1.0-4.8 Abs Monocytes 0.6 10^3/uL 0-0.8 Abs Eosinophils 0.2 10^3/uL 0-0.6 Abs Basophils 0.1 10^3/uL 0-0.2 Abs Nucleated RBC 0.01 10^3/uL Granulocyte % 59.2 % 38-83 Lymphocyte % 27.0 % 25-47 Monocyte % 9.5 % High 1-9 Eosinophil % 3.3 % 0-6 Basophil % 1.0 % 0-2 Nucleated Red Blood Cells % 0.1 Laboratory test finding 08/30/2016 TSH (Thyroid Stim Horm) 2.03 mcIU/mL 0.34-5.60 Free T4 (Free Thyroxine) 0.90 ng/dL 0.61-1.12 Urine Culture And 07/03/2016 Urine Culture SEE RESULT BELOW 20, 21 Sensitivities Laboratory test finding 03/07/2016 Vitamin D Total 34.9 ng/mL 30-50 25(Oh) Coenzyme Q10 Reduced & 03/07/2016 Coenzyme Q10 TNP () 22 Total Reduced Coenzyme Q10 Interpretation TNP () 23 Coenzyme Q10 Level 870 mcg/L 24 Laboratory test finding 11/27/2015 Erythrocyte Sed Rate 6 mm/Hr 0-20 25 CBC Auto Diff 11/27/2015 White Blood Count 7.4 10^3/uL 3.5-10.8 Red Blood Count 5.19 10^6/uL 4.0-5.4 Hemoglobin 15.7 g/dL 14.0-18.0 Hematocrit 48 % 42-52 Mean Corpuscular Volume 92 fL 80-94 Mean Corpuscular Hemoglobin 30 pg 27-31 Mean Corpuscular HGB Conc 33 g/dL 31-36 Red Cell Distribution Width 13 % 10.5-15 Platelet Count 243 10^3/uL 150-450 Mean Platelet Volume 9 um3 7.4-10.4 Abs Neutrophils 4.4 10^3/uL 1.5-7.7 Abs Lymphocytes 2.1 10^3/uL 1.0-4.8 Abs Monocytes 0.6 10^3/uL 0-0.8 Abs Eosinophils 0.3 10^3/uL 0-0.6 Abs Basophils 0.1 10^3/uL 0-0.2 Abs Nucleated RBC 0 10^3/uL Granulocyte % 58.7 % 38-83 Lymphocyte % 28.5 % 25-47 Monocyte % 7.6 % 1-9 Eosinophil % 3.9 % 0-6 Basophil % 1.3 % 0-2 Nucleated Red Blood Cells % 0 Basic Metabolic Panel 11/27/2015 Sodium 138 mmol/L 133-145 Potassium 4.8 mmol/L 3.5-5.0 Chloride 104 mmol/L 101-111 Co2 Carbon Dioxide 30 mmol/L 22-32 Anion Gap 4 mmol/L 2-11 Glucose 89 mg/dL 70-100 Blood Urea Nitrogen 19 mg/dL 6-24 Creatinine 1.22 mg/dL High 0.67-1.17 BUN/Creatinine Ratio 15.6 8-20 Calcium 9.4 mg/dL 8.6-10.3 Egfr Non- 62.1 >60 Egfr 79.9 >60 26 Lipid Profile (Trig/Chol/HDL) 11/27/2015 Triglycerides 130 mg/dL 27 Cholesterol 219 mg/dL 28 HDL Cholesterol 29.2 mg/dL 29 LDL Cholesterol 164 mg/dL 30 Liver Function Panel 11/27/2015 Total Protein 7.1 g/dL 6.4-8.9 Albumin 4.5 g/dL 3.2-5.2 Globulin 2.6 g/dL 2-4 Albumin/Globulin Ratio 1.7 1-3 Total Bilirubin 0.60 mg/dL 0.2-1.0 Direct Bilirubin 0.10 mg/dL 0.03-0.18 Indirect Bilirubin 0.5 mg/dL 0.3-1.0 Alkaline Phosphatase 52 U/L 34-104 Alt 54 U/L High 7-52 Ast 26 U/L 13-39 Laboratory test finding 11/27/2015 Vitamin D Total 25(Oh) 18.2 ng/mL Low 30-50 31 PSA Diagnostic 3.053 ng/mL 0-4.000 32 Laboratory test finding 11/29/2014 Prolactin 5.8 ng/mL 1.0-20.0 Sex Hormone Binding Globulin 20 nmol/L 10-57 33 PSA Free And Total 11/29/2014 PSA Total 3.8 ng/mL <=3.5 PSA Free 0.4 ng/mL PSA Free/Total See Comment ratio 34 Testosterone Profile 11/29/2014 Testosterone 420 ng/dL 240-950 35 Free Testosterone ng/dl 16 ng/dL 9-30 36 Bioavailable Testosterone 160 ng/dL 50-190 37 Lipid Profile (Trig/Chol/HDL) 09/27/2014 Triglycerides 214 mg/dL 38 Cholesterol 228 mg/dL 39 HDL Cholesterol 26.5 mg/dL 40 LDL Cholesterol 159 mg/dL 41 Testosterone Free & Total 09/27/2014 Free Testosterone ng/dl 8.2 ng/dL 9- 30 42 Testosterone 241 ng/dL 240-950 43 Comp Metabolic Panel 09/27/2014 Sodium 136 mmol/L 133-145 Potassium 4.0 mmol/L 3.5-5.0 Chloride 102 mmol/L 101-111 Co2 Carbon Dioxide 29 mmol/L 22-32 Anion Gap 5 mmol/L 2-11 Glucose 79 mg/dL 70-100 Blood Urea Nitrogen 13 mg/dL 6-24 Creatinine 1.10 mg/dL 0.67-1.17 BUN/Creatinine Ratio 11.8 8-20 Calcium 9.2 mg/dL 8.6-10.3 Total Protein 6.9 g/dL 6.4-8.9 Albumin 4.4 g/dL 3.2-5.2 Globulin 2.5 g/dL 2-4 Albumin/Globulin Ratio 1.8 1-3 Total Bilirubin 0.70 mg/dL 0.2-1.0 Alkaline Phosphatase 54 U/L 34-104 Alt 58 U/L High 7-52 Ast 27 U/L 13-39 Egfr Non- 70.3 >60 Egfr 90.4 >60 44 Laboratory test finding 09/27/2014 PSA Screening 3.957 ng/mL 0-4.000 45 Vitamin D, 25 Hydroxy 09/27/2014 25-Hydroxy Vitamin D2 31 ng/mL 25-Hydroxy Vitamin D3 4.5 ng/mL 25-Hydroxy Vitamin D Total 36 ng/mL 46 FSH And LH 09/27/2014 Follicle Stimulating Hormone 3.0 IU/mL 1-20 Luteinizing Hormone 1.3 IU/mL Low 2-12 Surgical Pathology 12/02/2013 S RUN DATE: 12/06/ <SEE 47 NOTE> Liver Function Panel 09/22/2013 Total Protein 6.8 g/dL 6.4-8.9 Albumin 4.3 g/dL 3.2-5.2 Globulin 2.5 g/dL 2-4 Albumin/Globulin Ratio 1.7 1-3 Total Bilirubin 0.60 mg/dL 0.2-1.0 Direct Bilirubin 0.10 mg/dL 0.03-0.18 Indirect Bilirubin 0.5 mg/dL 0.3-1.0 Alkaline Phosphatase 57 U/L 34-104 Alt 80 U/L High 7-52 Ast 27 U/L 13-39 Basic Metabolic Panel 09/22/2013 Sodium 139 mmol/L 133-145 Potassium 4.5 mmol/L 3.7-5.6 Chloride 105 mmol/L 101-111 Co2 Carbon Dioxide 29 mmol/L 22-32 Anion Gap 5 mmol/L 2-11 Glucose 86 mg/dL 70-100 Blood Urea Nitrogen 15 mg/dL 6-24 Creatinine 1.15 mg/dL 0.67-1.17 BUN/Creatinine Ratio 13.0 8-20 Calcium 9.2 mg/dL 8.6-10.3 Egfr Non- 67.0 >60 Egfr 86.2 >60 48 Laboratory test finding 09/22/2013 CRP High Sensitivity 1.91 mg/L 49 Lipid Profile (Trig/Chol/HDL) 09/22/2013 Triglycerides 196 mg/dL 50 Cholesterol 211 mg/dL 51 HDL Cholesterol 25.5 mg/dL 52 LDL Cholesterol 146 mg/dL 53 Vitamin D, 25 Hydroxy 09/22/2013 25-Hydroxy Vitamin D2 23 ng/mL 25-Hydroxy Vitamin D3 8.2 ng/mL 25-Hydroxy Vitamin D Total 31 ng/mL 54 Vitamin D, 25 Hydroxy 06/03/2013 25-Hydroxy Vitamin D2 <4.0 ng/mL 25-Hydroxy Vitamin D3 15 ng/mL 25-Hydroxy Vitamin D Total 15 ng/mL 55 Liver Function Panel 06/03/2013 Total Protein 6.9 g/dL 6.2-8.1 Albumin 4.2 g/dL 3.6-5.4 Globulin 2.7 g/dL 2-4 Albumin/Globulin Ratio 1.6 1-3 Total Bilirubin 0.8 mg/dL 0.4-1.5 Direct Bilirubin 0.1 mg/dL 0.1-0.5 Indirect Bilirubin 0.7 mg/dL 0.3-1.0 Alkaline Phosphatase 61 U/L 30-110 Alt 108 U/L High 14-54 Ast 49 U/L High 12-42 Basic Metabolic Panel 06/03/2013 Sodium 138 mmol/L 133-145 Potassium 4.4 mmol/L 3.5-5.0 Chloride 104 mmol/L 101-111 Co2 Carbon Dioxide 28.0 mmol/L 22-32 Anion Gap 6.0 mmol/L 2-11 Glucose 83 mg/dL 70-100 Blood Urea Nitrogen 12 mg/dL 6-24 Creatinine 1.00 mg/dL 0.50-1.40 BUN/Creatinine Ratio 12.0 8-20 Calcium 9.1 mg/dL 8.1-9.9 Egfr Non- 78.8 >60 Egfr 101.3 >60 56 Laboratory test finding 06/03/2013 TSH (Thyroid Stimulating 1.98 miu/mL 0.34-5.60 Horm) Hepatitis C Antibody Nonreactive Nonreactive CBC Auto Diff 06/03/2013 White Blood Count 8.6 10^3/uL 4.8-10.8 Red Blood Count 4.89 10^6/uL 4.0-5.4 Hemoglobin 15.5 g/dL 14.0-18.0 Hematocrit 44 % 42-52 Mean Corpuscular Volume 91 fL 80-94 Mean Corpuscular Hemoglobin 32 pg High 27-31 Mean Corpuscular HGB Conc 35 g/dL 31-36 Red Cell Distribution Width 12 % 10.5-15 Platelet Count 255 10^3/uL 150-450 Mean Platelet Volume 9 um3 7.4-10.4 Abs Neutrophils 5.4 10^3/uL 1.5-7.7 Abs Lymphocytes 2.2 10^3/uL 1.0-4.8 Abs Monocytes 0.6 10^3/uL 0-0.8 Abs Eosinophils 0.4 10^3/uL 0-0.6 Abs Basophils 0.1 10^3/uL 0-0.2 Abs Nucleated RBC 0.01 10^3/uL Granulocyte % 62.4 % 38-83 Lymphocyte % 25.2 % 25-47 Monocyte % 6.4 % 1-9 Eosinophil % 5.1 % 0-6 Basophil % 0.9 % 0-2 Nucleated Red Blood Cells % 0.1 Basic Metabolic Panel 08/21/2012 Sodium 140 mmol/L 133-145 Potassium 4.2 mmol/L 3.5-5.0 Chloride 103 mmol/L 101-111 Co2 Carbon Dioxide 29.0 mmol/L 22-32 Anion Gap 8.0 mmol/L 2-11 Glucose 78 mg/dL 70-100 Blood Urea Nitrogen 13 mg/dL 6-24 Creatinine 1.00 mg/dL 0.50-1.40 BUN/Creatinine Ratio 13.0 8-20 Calcium 9.7 mg/dL 8.1-9.9 Egfr Non- 79.1 >60 Egfr 101.7 >60 57 Vitamin D, 25 Hydroxy 08/21/2012 25-Hydroxy Vitamin D2 24 ng/mL 25-Hydroxy Vitamin D3 7.5 ng/mL 25-Hydroxy Vitamin D Total 32 ng/mL 58 CBC Auto Diff 08/21/2012 White Blood Count 7.8 10^3/uL 4.8-10.8 Red Blood Count 5.12 10^6/uL 4.0-5.4 Hemoglobin 15.5 g/dL 14.0-18.0 Hematocrit 47 % 42-52 Mean Corpuscular Volume 91 fL 80-94 Mean Corpuscular Hemoglobin 30 pg 27-31 Mean Corpuscular HGB Conc 33 g/dL 31-36 Red Cell Distribution Width 13 % 10.5-15 Platelet Count 282 10^3/uL 150-450 Mean Platelet Volume 9 um3 7.4-10.4 Abs Neutrophils 4.7 10^3/uL 1.5-7.7 Abs Lymphocytes 2.0 10^3/uL 1.0-4.8 Abs Monocytes 0.5 10^3/uL 0-0.8 Abs Eosinophils 0.5 10^3/uL 0-0.6 Abs Basophils 0.1 10^3/uL 0-0.2 Abs Nucleated RBC 0 10^3/uL Granulocyte % 60.2 % 38-83 Lymphocyte % 25.7 % 25-47 Monocyte % 6.6 % 1-9 Eosinophil % 6.5 % High 0-6 Basophil % 1.0 % 0-2 Nucleated Red Blood Cells % 0 Laboratory test finding 08/21/2012 Vitamin B12 621 pg/mL 180-914 Liver Function Panel 08/21/2012 Total Protein 7.1 g/dL 6.2-8.1 Albumin 4.5 g/dL 3.6-5.4 Globulin 2.6 g/dL 2-4 Albumin/Globulin Ratio 1.7 1-3 Total Bilirubin 0.8 mg/dL 0.4-1.5 Direct Bilirubin 0.1 mg/dL 0.1-0.5 Indirect Bilirubin 0.7 mg/dL 0.3-1.0 Alkaline Phosphatase 63 U/L 30-110 Alt 82 U/L High 14-54 Ast 38 U/L 12-42 Laboratory test finding 08/21/2012 GGTP 53 U/L High 7-50 Laboratory test finding 12/02/2011 GGTP 73 U/L High 7-50 Testosterone Free & Total 12/02/2011 Free Testosterone 12 ng/dL 9-30 59 Total Testosterone 337 ng/dL 240-950 60 Vitamin D, 25 Hydroxy 12/02/2011 25-Hydroxy Vitamin D2 <4.0 ng/mL () 25-Hydroxy Vitamin D3 16 ng/mL () 25-Hydroxy Vitamin D Total 16 ng/mL () 61 Laboratory test finding 12/02/2011 TSH 2.16 MIU/ML 0.34-5.60 CBC Auto Diff 12/02/2011 White Blood Count 7.0 CUMM 4.8-10.8 Red Cell Count 4.70 CUMM 4.6-6.2 Hemoglobin 15.1 g/dL 14.0-18.0 Hematocrit 43 % 42-52 Mean Corpuscular Volume 91 um3 80-94 Mean Corpuscular Hemoglob 32 pg High 27-31 Mean Corpuscular HGB Cone 35 g/dL 32-36 Redcell Distribution WDTH 13 % 10.5-15 Platelet Count 260 CUMM 150-450 Mean Platelet Volume 8.7 um3 7.4-10.4 Gran % 58.5 % 38-83 Lymph % 29.9 % 25-47 Mononuclear % 6.7 % 1-9 Eosinophil % 4.2 % 0-6 Basophil % 0.7 % 0-2 Abs Lymphs 2.1 1.0-4.8 Abs Mononuclear 0.5 0-0.8 Absolute Neutrophil Count 4.1 1.5-7.7 Abs Eosinophils 0.3 0-0.6 Abs Basophils 0.1 0-0.2 Liver Function Panel 12/02/2011 Total Protein 6.9 GM/DL 6.2-8.1 Albumin 4.5 GM/DL 3.6-5.4 Globulin 2.4 GM/DL 2-4 Albumin/Globulin Ratio 1.9 1-3 Bilirubin Total 1.0 mg/dL 0.4-1.5 62 Bilirubin Direct 0.2 mg/dL 0.1-0.5 Indirect Bilirubin 0.8 mg/dL 0.3-1.0 63 Alkaline Phosphatase 55 U/L 39-117 Alt (SGPT) 88 U/L High 17-63 Ast (Sgot) 37 U/L 12-42 Laboratory test finding 02/21/2011 GGTP 55 U/L High 7-50 Liver Function Panel 02/21/2011 Total Protein 6.8 GM/DL 6.2-8.1 Albumin 4.6 GM/DL 3.6-5.4 Globulin 2.2 GM/DL 2-4 Albumin/Globulin Ratio 2.1 1-3 Bilirubin Total 1.1 mg/dL 0.4-1.5 64 Bilirubin Direct 0.1 mg/dL 0.1-0.5 Indirect Bilirubin 1.0 mg/dL 0.3-1.0 65 Alkaline Phosphatase 56 U/L 39-117 Alt (SGPT) 58 U/L 17-63 Ast (Sgot) 30 U/L 12-42 Laboratory test finding 2010 Clotest NEGATIVE CBC With Electronic Diff 06/18/2010 White Blood Count 9.3 CUMM 4.8-10.8 Red Cell Count 5.11 CUMM 4.6-6.2 Hemoglobin 16.0 g/dL 14.0-18.0 Hematocrit 47 % 42-52 Mean Corpuscular Volume 91 um3 80-94 Mean Corpuscular Hemoglob 31 pg 27-31 Mean Corpuscular HGB Cone 34 g/dL 32-36 Redcell Distribution WDTH 13 % 10.5-15 Platelet Count 243 CUMM 150-450 Mean Platelet Volume 7.8 um3 7.4-10.4 Gran % 58.1 % 38-83 Lymph % 28.3 % 25-47 Mononuclear % 9.2 % High 1-9 Eosinophil % 3.6 % 0-6 Basophil % 0.8 % 0-2 Abs Lymphs 2.6 1.0-4.8 Abs Mononuclear 0.9 High 0-0.8 Absolute Neutrophil Count 5.4 1.5-7.7 Abs Eosinophils 0.3 0-0.6 Abs Basophils 0.1 0-0.2 Vitamin B12 And Folate Serum 06/18/2010 Vitamin B12 392 pg/mL 180-914 Folic Acid 8.8 NG/ML 2-16 Vitamin D, 25 Hydroxy 06/18/2010 25-Hydroxy Vitamin D2 <4.0 ng/mL () 25-Hydroxy Vitamin D3 20 ng/mL () 25-Hydroxy Vitamin D Total 20 ng/mL () 66 Liver Function Panel 06/18/2010 Total Protein 7.3 GM/DL 6.2-8.1 Albumin 4.8 GM/DL 3.6-5.4 Globulin 2.5 GM/DL 2-4 Albumin/Globulin Ratio 1.9 1-3 Bilirubin Total 1.0 mg/dL 0.4-1.5 67 Bilirubin Direct 0.1 mg/dL 0.1-0.5 Indirect Bilirubin 0.9 mg/dL 0.3-1.0 68 Alkaline Phosphatase 60 U/L 39-117 Alt (SGPT) 73 U/L High 17-63 Ast (Sgot) 26 U/L 12-42 Laboratory test finding 06/18/2010 GGTP 80 U/L High 7-50 Thyroxine Free 0.91 NG/ML 0.61-1.24 TSH 2.45 MIU/ML 0.34-5.60 Testosterone Total 303.9 ng/dL 175-781 Liver Function Panel 12/27/2009 Total Protein 6.3 GM/DL 6.2-8.1 Albumin 4.4 GM/DL 3.6-5.4 Globulin 1.9 GM/DL Low 2-4 Albumin/Globulin Ratio 2.3 1-3 Bilirubin Total 1.0 mg/dL 0.4-1.5 69 Bilirubin Direct 0.1 mg/dL 0.1-0.5 Indirect Bilirubin 0.9 mg/dL High 0.1-0.75 Alkaline Phosphatase 54 U/L 39-117 Alt (SGPT) 98 U/L High 17-63 Ast (Sgot) 37 U/L 12-42 CBC With Electronic Diff 12/27/2009 White Blood Count 7.6 CUMM 4.8-10.8 Red Cell Count 4.76 CUMM 4.6-6.2 Hemoglobin 15.0 g/dL 14.0-18.0 Hematocrit 44 % 42-52 Mean Corpuscular Volume 92 um3 80-94 Mean Corpuscular Hemoglob 32 pg High 27-31 Mean Corpuscular HGB Cone 35 g/dL 32-36 Redcell Distribution WDTH 13 % 10.5-15 Platelet Count 242 CUMM 150-450 Mean Platelet Volume 8.3 um3 7.4-10.4 Gran % 61.8 % 38-83 Lymph % 27.0 % 25-47 Mononuclear % 7.3 % 1-9 Eosinophil % 3.3 % 0-6 Basophil % 0.6 % 0-2 Abs Lymphs 2.0 1.0-4.8 Abs Mononuclear 0.6 0-0.8 Absolute Neutrophil Count 4.7 1.5-7.7 Abs Eosinophils 0.2 0-0.6 Abs Basophils 0 0-0.2 Laboratory test finding 12/27/2009 TSH 2.07 MIU/ML 0.34-5.60 Lead 12/27/2009 Lead < 1.0 g/dL 0-25.0 70 Lead Specimen Type VENOUS Liver Function Panel 02/09/2009 Total Protein 6.7 GM/DL 6.2-8.1 Albumin 4.3 GM/DL 3.6-5.4 Globulin 2.4 GM/DL 2-4 Albumin/Globulin Ratio 1.8 1-3 Bilirubin Total 1.1 mg/dL 0.4-1.5 71 Bilirubin Direct 0.1 mg/dL 0.1-0.5 Indirect Bilirubin 1.0 mg/dL High 0.1-0.75 Alkaline Phosphatase 43 U/L 39-117 Alt (SGPT) 44 U/L 17-63 Ast (Sgot) 30 U/L 12- Laboratory test finding 02/09/2009 GGTP 36 U/L 7-50 Basic Metabolic Panel 02/09/2009 Sodium 138 mmol/L 135-145 Potassium 4.1 mmol/L 3.5-5.0 Chloride 102 mmol/L 101-111 Co2 (Carbon Dioxide) 29.0 mmol/L 22-32 Anion Gap 7.0 mmol/L 2-11 72 Glucose 94 mg/dL 70-100 73 BUN 14 mg/dL 6-24 Creatinine 1.20 mg/dL 0.50-1.40 One Over Creatinine 0.80 BUN/Creatinine Ratio 11.7 8-20 Calcium 9.3 mg/dL 8.1-9.9 74 eGFR Non- 69.0 > 60 eGFR 83.5 > 60 75 Laboratory test finding 05/11/2008 GGTP 38 U/L 7-50 Liver Function Panel 05/11/2008 Total Protein 7.1 GM/DL 6.2-8.1 Albumin 4.4 GM/DL 3.6-5.4 Globulin 2.7 GM/DL 2-4 Albumin/Globulin Ratio 1.6 1-3 Bilirubin Total 1.1 mg/dL 0.4-1.5 Bilirubin Direct 0.2 mg/dL 0.1-0.5 Indirect Bilirubin 0.9 mg/dL High 0.1-0.75 Alkaline Phosphatase 61 U/L 39-117 Alt (SGPT) 68 U/L High 17-63 Ast (Sgot) 31 U/L 12-42 Basic Metabolic Panel 05/11/2008 Sodium 141 mmol/L 135-145 Potassium 4.8 mmol/L 3.5-5.0 Chloride 102 mmol/L 101-111 Co2 (Carbon Dioxide) 31.0 mmol/L 22-32 Anion Gap 8.0 mmol/L 2-11 76 Glucose 95 mg/dL 70-100 77 BUN 11 mg/dL 6-24 Creatinine 1.2 mg/dL 0.5-1.4 One Over Creatinine 0.83 BUN/Creatinine Ratio 9.2 8-20 Calcium 9.7 mg/dL 8.1-9.9 78 CBC With Manual Diff 05/11/2008 White Blood Count 7.4 CUMM 4.8-10.8 Red Cell Count 4.94 CUMM 4.6-6.2 Hemoglobin 15.4 g/dL 14.0-18.0 Hematocrit 44 % 42-52 Mean Corpuscular Volume 89 um3 80-94 Mean Corpuscular Hemoglob 31 pg 27-31 Mean Corpuscular HGB Cone 35 g/dL 32-36 Redcell Distribution WDTH 13 % 10.5-15 Platelet Count 265 CUMM 150-450 Mean Platelet Volume 7.9 um3 7.4-10.4 Polysegmented Neutrophil 64 % 38-83 Band Neutrophil 3 % 0-8 Lymphocyte 20 % 5-47 Monocyte 6 % 0-13 Eosenophil 6 % 0-6 Atypical Lymph 1 % 0-6 Absolute Neutrophil Count 4.9 RBC Morphology NORMAL Laboratory test finding 05/11/2008 C Reactive Protein < 0.5 mg/dL Less Than 0.5 TSH 2.73 MIU/ML 0.34-5.60 1 SEE RESULT BELOW Name: GYPSY HA : [address]: Melo Trevino MD Acct: [id number] Unit: [id number] AGE: 57 Location: [facility] 338-01 Re05/03/18 Dis: 05/04/18 SEX: M Status: DIS IN SPEC: [id number] LUIS: 05/03/18- SUBM DR: Melo Trevino MD REQ: [id number] RECD: 05/03/181254 STATUS: SOUT _ ORDERED: LEVEL 3 FINAL DIAGNOSIS Appendix, appendectomy: -- Acute suppurative appendicitis and deon-appendicitis with perforation. PRE-OPERATIVE DIAGNOSIS Acute appendicitis GROSS DESCRIPTION The specimen is received in formalin labeled, Appendix, and consists of an 8.7 by up to 1.1 cm appendix with abundant attached mesoappendix. There is a 1.1 x 0.7 cm perforation, 2.2 cm from the proximal margin. The remaining serosa is smooth to focally shaggy mottled tena-figueroa with mild focal tena-white fibropurulent exudate. The lumen measures up to 0.9 cm and contains a few brown fecalith measuring up to 1.0 cm. The mucosa associated with the perforation is dusky morse. The remaining mucosa is glistening tena-white and focally eroded and the wall thickness measures up to 0.2 cm. Yoga Instructor sections are submitted in cassettes A and B to include perforation in cassette B. Signed by and Reported on: Rosa Fox MD 05/06/18 0956 END OF REPORT DEPARTMENT OF PATHOLOGY, [address] [place] [address] Julio Gasca M.D. Director [facility] # [id number] [address] [facility] Severe Sepsis and Septic Shock Management Bundle Measure requires all lactic acids initially measuring >2.0 mmol/L be repeated. 3 Because ethnic data is not always readily available, this report includes an eGFR for both -Americans and non- Americans. The National Kidney Disease Education Program (NKDEP) does not endorse the use of the MDRD equation for patients that are not between the ages of 18 and 70, are , have extremes of body size, muscle mass, or nutritional status, or are non- or non-. According to the National Kidney Foundation, irrespective of diagnosis, the stage of the disease is based on the level of kidney function: Stage Description GFR(mL/min/1.73 m(2)) 1 Kidney damage with normal or decreased GFR 90 2 Kidney damage with mild decrease in GFR 60-89 3 Moderate decrease in GFR 30-59 4 Severe decrease in GFR 15-29 5 Kidney failure <15 (or dialysis) 4 Desirable: <150 Borderline High: 150-199 High: 200-499 Very High: >500 5 Desirable: <200 Borderline High: 200-239 High: >239 6 Low: <40 Desirable: 40-60 High: >60 7 Desirable: <100 Near Optimal: 100-129 Borderline High: 130-159 High: 160-189 Very High: >189 8 Because ethnic data is not always readily available, this report includes an eGFR for both -Americans and non- Americans. The National Kidney Disease Education Program (NKDEP) does not endorse the use of the MDRD equation for patients that are not between the ages of 18 and 70, are , have extremes of body size, muscle mass, or nutritional status, or are non- or non-. According to the National Kidney Foundation, irrespective of diagnosis, the stage of the disease is based on the level of kidney function: Stage Description GFR(mL/min/1.73 m(2)) 1 Kidney damage with normal or decreased GFR 90 2 Kidney damage with mild decrease in GFR 60-89 3 Moderate decrease in GFR 30-59 4 Severe decrease in GFR 15-29 5 Kidney failure <15 (or dialysis) 9 Test Performed by: [address] [address] 10 no fibrosis Fibro Test Score Metavir Score 0.00-0.21 F0 no fibrosis 0.22-0.27 F0-F1 0.28-0.31 F1 minimal fibrosis 0.32-0.48 F1-F2 0.49-0.58 F2 moderate fibrosis 0.59-0.72 F3 advanced fibrosis 0.73-0.74 F3-F4 0.75-1.00 F4 severe fibrosis 11 minimal activity ActiTest Score Metavir Score 0.00-0.17 A0 no activity 0.18-0.29 A0-A1 0.30-0.36 A1 minimal activity 0.37-0.52 A1-A2 0.53-0.60 A2 significant activity 0.61-0.62 A2-A3 0.63-1.00 A3 severe activity 12 The reliability of results is dependent on compliance with the preanalytical and analytical conditions recommended by [employer]. The tests have to be deferred for: acute hemolysis, acute hepatitis, acute inflammation, extra hepatic cholestasis. The advice of a specialist should be sought for interpretation in chronic hemolysis and Gilbert's syndrome. The test interpretation is not validated in liver transplant patients. Isolated extreme values of one of the components should lead to caution in interpreting the results. In case of discordance between a biopsy result and a test, it is recommended to seek the advice of a specialist. The causes of these discordances could be due to a flaw of the test or to a flaw in the biopsy: i.e. a liver biopsy has a 33% variability rate for one fibrosis stage. FibroTest is interpretable for chronic hepatitis B and C, alcoholic and non alcoholic steatosis. ActiTest is interpretable for chronic hepatitis B and C. The performance characteristics have been determined by [facility]. It has not been cleared or approved by the U.S. Food and Drug Administration. Performance characteristics refer to the analytical performance of the test. [employer], [employer], the associated logo, [employer] and all associated [employer] pink are the registered trademarks of [employer]. All third green party pink - (R) and (TM) - are the property of their respective owners. (C) [id number] [employer]. All rights reserved. Test Performed by: [employer] [address] [place] [address] 13 ADDITIONAL INFORMATION This test was developed and its performance characteristics determined by [facility] in a manner consistent with CLIA requirements. This test has not been cleared or approved by the U.S. Food and Drug Administration. Test Performed by: [facility] [place] [address] Convention Services Manager: Jimmy Carlin II, M.D., Ph.D. 14 ADDITIONAL INFORMATION This test was developed and its performance characteristics determined by [facility] in a manner consistent with CLIA requirements. This test has not been cleared or approved by the U.S. Food and Drug Administration. Test Performed by: [facility] [place] [address] Convention Services Manager: Jimmy Carlin II, M.D., Ph.D. 15 Desirable <150 Borderline high 150-199 High 200-499 Very High >500 16 Desirable <200 Borderline high 200-239 High >239 17 Low <40 Desirable: 40-60 High: >60 18 Desirable: <100 mg/dL Near Optimal: 100-129 mg/dL Borderline High: 130-159 mg/dL High: 160-189 mg/dL Very High: >189 mg/dL 19 Because ethnic data is not always readily available, this report includes an eGFR for both -Americans and non- Americans. The National Kidney Disease Education Program (NKDEP) does not endorse the use of the MDRD equation for patients that are not between the ages of 18 and 70, are , have extremes of body size, muscle mass, or nutritional status, or are non- or non-. According to the National Kidney Foundation, irrespective of diagnosis, the stage of the disease is based on the level of kidney function: Stage Description GFR(mL/min/1.73 m(2)) 1 Kidney damage with normal or decreased GFR 90 2 Kidney damage with mild decrease in GFR 60-89 3 Moderate decrease in GFR 30-59 4 Severe decrease in GFR 15-29 5 Kidney failure <15 (or dialysis) 20 [id number] 21 SEE RESULT BELOW Name: GYPSY HA Halina : [address]: Davon Rendon MD Acct: [id number] Unit: [id number] AGE: 55 Location: [facility] Re07/03/16 SEX: M Status: DEP ER SPEC: [id number] LUIS: 07/03/16-[address]: Sandie BUCKLEYC REQ: [id number] RECD: 07/03/16 STATUS: ANNAMARIA QUIROS DR: Davon Gunn MD _ SOURCE: URINE SPDESC: ORDERED: Urine Culture COMMENTS: [id number] Procedure Result Reported Site Urine Culture Final 07/04/16- 1612 ML No Growth (<1,000 CFU/mL) * ML - MAIN LAB ([facility]) . END OF REPORT * ML=Testing performed at Main Lab DEPARTMENT OF PATHOLOGY, [address] [place] [address] Julio Gasca M.D. Director [facility] # [id number] 22 Coenzyme Q10, Reduced and Total, P was cancelled on 03/10/2016 at 11:06; Test changed to more appropriate unit code per specimen/source received. 23 Coenzyme Q10, Reduced and Total, P was cancelled on 03/10/2016 at 11:06; Test changed to more appropriate unit code per specimen/source received. Test Performed by: [address] [address] Convention Services Manager: Jimmy Carlin II, M.D., Ph.D. 24 Reference Value: [id number] Interpretation (TQ10): In this sample the total coenzyme Q10 concentration is normal. ADDITIONAL INFORMATION High-Performance Liquid Chromatography (HPLC) with Electrochemical Detection Reviewed By: Shi Islas M.D., Ph.D. Test Performed by: [address] [address] Convention Services Manager: Jimmy Carlin II, M.D., Ph.D. 25 FASTING 10 HOUR Copy Result to: HUNG PYLE ([id number]) 26 Because ethnic data is not always readily available, this report includes an eGFR for both -Americans and non- Americans. The National Kidney Disease Education Program (NKDEP) does not endorse the use of the MDRD equation for patients that are not between the ages of 18 and 70, are , have extremes of body size, muscle mass, or nutritional status, or are non- or non-. According to the National Kidney Foundation, irrespective of diagnosis, the stage of the disease is based on the level of kidney function: Stage Description GFR(mL/min/1.73 m(2)) 1 Kidney damage with normal or decreased GFR 90 2 Kidney damage with mild decrease in GFR 60-89 3 Moderate decrease in GFR 30-59 4 Severe decrease in GFR 15-29 5 Kidney failure <15 (or dialysis) 27 Desirable <150 Borderline high 150-199 High 200-499 Very High >500 28 Desirable <200 Borderline high 200-239 High >239 29 Low <40 Desirable: 40-60 High: >60 30 Desirable: <100 mg/dL Near Optimal: 100-129 mg/dL Borderline High: 130-159 mg/dL High: 160-189 mg/dL Very High: >189 mg/dL 31 FASTING 10 HOUR Copy Result to: HUNG PYLE ([id number]) 32 Serum levels of PSA measured using the May [employer] DXI Hybritech immunoassay should not be interpreted as absolute evidence of the presence or absence of disease. The PSA value should be used in conjunction with other pertinent clinical diagnostic procedures. The values obtained with different assay methods or kits cannot be used interchangeably. 33 Test Performed by: [place] [address] Convention Services Manager: Jimmy Carlin II, M.D., Ph.D. 34 Ratio not calculated because clinical usefulness is not defined except in range of total PSA 4.0-10.0 ng/mL. ADDITIONAL INFORMATION The testing method is an electrochemiluminescence assay manufactured by [employer] and performed on the Modular or Isrrael system. Values obtained with different assay methods or kits may be different and cannot be used interchangeably. Test results cannot be interpreted as absolute evidence for the presence or absence of malignant disease. Test Performed by: [facility] [place] [address] Convention Services Manager: Jimmy Carlin II, M.D., Ph.D. 35 ADDITIONAL INFORMATION Testing performed by Liquid Chromatography-Tandem Mass Spectrometry (LC-MS/MS). 36 ADDITIONAL INFORMATION Testing performed by Equilibrium Dialysis. 37 ADDITIONAL INFORMATION Testing performed by Differential Precipitation. Test Performed by: [place] [address] Convention Services Manager: Jimmy Carlin II, M.D., Ph.D. 38 Desirable <150 Borderline high 150-199 High 200-499 Very High >500 39 Desirable <200 Borderline high 200-239 High >239 40 Low <40 Desirable: 40-60 High: >60 41 Desirable <100 Near Optimal 100-129 Borderline high 130-159 High 160-189 Very High >189 42 ADDITIONAL INFORMATION Testing performed by Equilibrium Dialysis. 43 ADDITIONAL INFORMATION Testing performed by Liquid Chromatography-Tandem Mass Spectrometry (LC-MS/MS). Test Performed by: [address] [address] Convention Services Manager: Jimmy Carlin II, M.D., Ph.D. 44 Because ethnic data is not always readily available, this report includes an eGFR for both -Americans and non- Americans. The National Kidney Disease Education Program (NKDEP) does not endorse the use of the MDRD equation for patients that are not between the ages of 18 and 70, are , have extremes of body size, muscle mass, or nutritional status, or are non- or non-. According to the National Kidney Foundation, irrespective of diagnosis, the stage of the disease is based on the level of kidney function: Stage Description GFR(mL/min/1.73 m(2)) 1 Kidney damage with normal or decreased GFR 90 2 Kidney damage with mild decrease in GFR 60-89 3 Moderate decrease in GFR 30-59 4 Severe decrease in GFR 15-29 5 Kidney failure <15 (or dialysis) 45 Serum levels of PSA measured using the May [employer] DXI Hybritech immunoassay should not be interpreted as absolute evidence of the presence or absence of disease. The PSA value should be used in conjunction with other pertinent clinical diagnostic procedures. The values obtained with different assay methods or kits cannot be used interchangeably. 46 REFERENCE VALUE 25-HYDROXY D TOTAL (D2+D3) Optimum levels in the healthy population are 20-50, patients with bone disease may benefit from higher levels within this range. Test Performed by: [facility] - [address] [address] Convention Services Manager: Jimmy Carlin II, M.D., Ph.D. 47 RUN DATE: 12/06/13 [facility] LAB LIVE PAGE 1 RUN TIME: [address] [place] [address] Specimen Inquiry Name: GYPSY HA : [address]: Leobardo Queen MD Acct: [id number] Unit: [id number] AGE: 52 Location: [facility] Re12/02/13 SEX: M Status: REG REF SPEC: [id number] LUIS: 12/02/13- SUBM DR: Leobardo Queen MD REQ: [id number] RECD: 12/02/13 STATUS: GAEL QUIROS DR: Thanh Gunn MD _ ORDERED: LEVEL IV FINAL DIAGNOSIS Colon, transverse, biopsy: A. Tubular adenoma. B. No high grade dysplasia or malignancy. CLINICAL HISTORY Routine screening colonoscopy. POST-OPERATIVE DIAGNOSIS Routine screening colonoscopy into cecum, prep good. Small transverse colon polyp removed. GROSS DESCRIPTION The specimen is received in formalin labeled Gypsy Ha, Biopsy Transverse Colon Polyp and consists of a 0.4 x 0.3 x 0.3 cm. tena, polypoid, soft tissue fragment. Submitted entirely, one cassette. Signed (signature on file) Julio Gasca MD 1524 END OF REPORT * ML=Testing performed at Main Lab DEPARTMENT OF PATHOLOGY, [address] [place] [address] Julio Gasca M.D. Director [facility] # [id number] 48 Because ethnic data is not always readily available, this report includes an eGFR for both -Americans and non- Americans. The National Kidney Disease Education Program (NKDEP) does not endorse the use of the MDRD equation for patients that are not between the ages of 18 and 70, are , have extremes of body size, muscle mass, or nutritional status, or are non- or non-. According to the National Kidney Foundation, irrespective of diagnosis, the stage of the disease is based on the level of kidney function: Stage Description GFR(mL/min/1.73 m(2)) 1 Kidney damage with normal or decreased GFR 90 2 Kidney damage with mild decrease in GFR 60-89 3 Moderate decrease in GFR 30-59 4 Severe decrease in GFR 15-29 5 Kidney failure <15 (or dialysis) 49 Low risk: <1.0 mg/L Average risk: 1.0-3.0 mg/L High risk: >3.0 mg/L Acute inflammation: >10.0 mg/L 50 Desirable <150 Borderline high 150-199 High 200-499 Very High >500 51 Desirable <200 Borderline high 200-239 High >239 52 Low <40 Desirable: 40-60 High: >60 53 Desirable <100 Near Optimal 100-129 Borderline high 130-159 High 160-189 Very High >189 54 -- REFERENCE VALUE -- 25-HYDROXY D TOTAL (D2+D3) Optimum levels in the healthy population are 20-50, patients with bone disease may benefit from higher levels within this range. Test Performed by: [address] [address] Convention Services Manager: Don Chaudhry III, M.D. 55 Interpretation: 10-19 ng/mL (mild to moderate deficiency) -- REFERENCE VALUE -- 25-HYDROXY D TOTAL (D2+D3) Optimum levels in the healthy population are 20-50, patients with bone disease may benefit from higher levels within this range. Test Performed by: [facility] [address] [place] [address] Convention Services Manager: Don Chaudhry III, M.D. 56 Because ethnic data is not always readily available, this report includes an eGFR for both -Americans and non- Americans. The National Kidney Disease Education Program (NKDEP) does not endorse the use of the MDRD equation for patients that are not between the ages of 18 and 70, are , have extremes of body size, muscle mass, or nutritional status, or are non- or non-. According to the National Kidney Foundation, irrespective of diagnosis, the stage of the disease is based on the level of kidney function: Stage Description GFR(mL/min/1.73 m(2)) 1 Kidney damage with normal or decreased GFR 90 2 Kidney damage with mild decrease in GFR 60-89 3 Moderate decrease in GFR 30-59 4 Severe decrease in GFR 15-29 5 Kidney failure <15 (or dialysis) 57 Because ethnic data is not always readily available, this report includes an eGFR for both -Americans and non- Americans. The National Kidney Disease Education Program (NKDEP) does not endorse the use of the MDRD equation for patients that are not between the ages of 18 and 70, are , have extremes of body size, muscle mass, or nutritional status, or are non- or non-. According to the National Kidney Foundation, irrespective of diagnosis, the stage of the disease is based on the level of kidney function: Stage Description GFR(mL/min/1.73 m(2)) 1 Kidney damage with normal or decreased GFR 90 2 Kidney damage with mild decrease in GFR 60-89 3 Moderate decrease in GFR 30-59 4 Severe decrease in GFR 15-29 5 Kidney failure <15 (or dialysis) 58 -- REFERENCE VALUE -- 25-HYDROXY D TOTAL (D2+D3) Optimum levels in the normal population are 25-80 Test Performed by: [facility] [place] [address] Convention Services Manager: Don Chaudhry III, M.D. 59 Test Performed by: [facility] Dpt of Lab Med and Pathology [address] [place] [address] Convention Services Manager: Don Chaudhry III, M.D. 60 Test Performed by: [facility] Dpt of Lab Med and Pathology [address] [place] [address] Convention Services Manager: Don Chaudhry III, M.D. 61 Interpretation: 10-24 (mild to moderate deficiency) -- REFERENCE VALUE -- 25-HYDROXY D TOTAL (D2+D3) Optimum levels in the normal population are 25-80 Test Performed by: [facility] Dpt of Lab Med and Pathology [address] [place] [address] Convention Services Manager: Don Chaudhry III, M.D. 62 A metabolite of Naproxen, O-desmethylnaproxen, has been shown to interfere with the Jendrassik-Harborton method for measuring total bilirubin. Samples from patients who have taken Naproxen have shown spurious elevation in total bilirubin levels. 63 Please note updated reference range, effective 02/15/10 64 A metabolite of Naproxen, O-desmethylnaproxen, has been shown to interfere with the Jendrassik-Blu method for measuring total bilirubin. Samples from patients who have taken Naproxen have shown spurious elevation in total bilirubin levels. 65 Please note updated reference range, effective 02/15/10 66 Interpretation: 10-24 (mild to moderate deficiency) -- REFERENCE VALUE -- 25-HYDROXY D TOTAL (D2+D3) Optimum levels in the normal population are 25-80 Test Performed by: [facility] Dpt of Lab Med and Pathology [address] [place] [address] Convention Services Manager: Don Chaudhry III, M.D. 67 A metabolite of Naproxen, O-desmethylnaproxen, has been shown to interfere with the Jendrassik-Harborton method for measuring total bilirubin. Samples from patients who have taken Naproxen have shown spurious elevation in total bilirubin levels. 68 Please note updated reference range, effective 02/15/10 69 A metabolite of Naproxen, O-desmethylnaproxen, has been shown to interfere with the Jendrassik-Blu method for measuring total bilirubin. Samples from patients who have taken Naproxen have shown spurious elevation in total bilirubin levels. 70 CDC CLASSIFICATIONS FOR BLOOD LEAD CONCENTRATION SCREENING IN CHILDREN: CDC CLASS* BLOOD LEAD CONCENTRATION (MCG/DL) I LESS THAN OR EQUAL TO 9 IIA 10 - 14 IIB 15 - 19 III 20 - 44 IV 45 - 69 V GREATER THAN OR EQUAL TO 70 *REFER TO CURRENT CDC GUIDELINES FOR COMMENTS AND INTERVENTIONS RECOMMENDED FOR EACH CLASS. CERTIFICATE OF BLOOD LEAD TESTING THIS IS TO CERTIFY THAT THE ABOVE NAMED PATIENT HAS BEEN TESTED FOR BLOOD LEAD. TESTING WAS PERFORMED BY [facility] WHICH IS LICENSED BY [facility] TO PERFORM BLOOD LEAD TESTING. THIS CERTIFICATE IS PROVIDED A SERVICE TO OUR CLIENTS AND THEIR PATIENTS WHO MAY BE REQUIRED TO PRODUCE DOCUMENTATION OF BLOOD LEAD TESTING. . 71 A metabolite of Naproxen, O-desmethylnaproxen, has been shown to interfere with the Jendrassik-Blu method for measuring total bilirubin. Samples from patients who have taken Naproxen have shown spurious elevation in total bilirubin levels. 72 Anion gap measurement may be of limited value in the presence of any alkalosis, especially in a combined acid base disorder. . 73 Note change in reference range as of 03/17/08. The change was based on recommendations from the [place] [employer]. 74 Please note change in reference range effective 07 . 75 Because ethnic data is not always readily available, this report includes an eGFR for both -Americans and non- Americans. The National Kidney Disease Education Program (NKDEP) does not endorse the use of the MDRD equation for patients that are not between the ages of 18 and 70, are , have extremes of body size, muscle mass, or nutritional status, or are non- or non-. According to the National Kidney Foundation, irrespective of diagnosis, the stage of the disease is based on the level of kidney function: Stage Description GFR(mL/min/1.73 m(2)) 1 Kidney damage with normal or decreased GFR 90 2 Kidney damage with mild decrease in GFR 60-89 3 Moderate decrease in GFR 30-59 4 Severe decrease in GFR 15-29 5 Kidney failure <15 (or dialysis) 76 Anion gap measurement may be of limited value in the presence of any alkalosis, especially in a combined acid base disorder. . 77 Note change in reference range as of 03/17/08. The change was based on recommendations from the [place] [employer]. 78 Please note change in reference range effective 07 . Procedures Date CPT Code Description Status 05/03/2018 03570 Laparoscopy, Surgical, Appendectomy Completed 12/02/2013 Colonoscopy Completed 05/28/2006 64691 Echocardiogram, Limited Study Completed 05/27/2006 61591 Color Flow Doppler/Interp & Reprt Completed 05/27/2006 92120 Pulse Wave/Continuous-Interp.RPT Completed 05/27/2006 65884 Pulse Wave/Continuous-Interp.RPT Completed 05/27/2006 56939 Echocardiogram Completed Encounters Type Date Location Provider CPT E/M Dx Office Visit 11/13/2017 [place] [address] G47.33 11:00a [facility] G25.81 R53.82 Office Visit 10/03/2017 9:40a [facility] Internal Thanh Gunn, [address] K75.81 Medicine - [place] Kirit Danielson,FACP I10 R53.81 E55.9 Office Visit 11/06/2016 10:30a [facility] Thanh Gunn, 62164 Z00.01 Medicine - [place] Kirit Danielson,FACP K75.81 I10 Office Visit 08/28/2016 1:40p [facility] Thanh Gunn, 75747 R53.81 Medicine - [place] Kirit Danielson,FACP E55.9 Office Visit 11/03/2015 11:40a [facility] Thanh Gunn, 73190 Z00.01 Medicine - [place] Kirit Danielson,FACP I10 R97.2 E78.2 E55.9 L56.2 Office Visit 12/14/2014 1:40p [facility] Thanh Gunn, [address] 078.2 - [place] Kirit Danielson,FACP 790.93 401.1 Office Visit 09/27/2014 1:00p [facility] Hung Llamas M.D. 31393 V70.0 Medicine - [address] 327.23 571.40 401.1 782.62 268.9 272.2 V76.44 Office Visit 08/27/2013 1:00p [facility] Medicine Thanh Nicol[place], [address] V70.0 - Miguel Danielson,FACP 268.9 571.9 V76.51 078.2 401.1 Office Visit 06/03/2013 11:30a [facility] [address] 780.71 - Miguel Danielson,FACP 268.9 571.9 V76.51 V04.81 Office Visit 08/21/2012 11:40a [facility] [place], [address] 780.79 - Miguel Danielson,FACP 268.9 281.1 571.40 Office Visit 07/02/2012 2:40p [facility] Medicine [facility] [place], [address] 780.57 - Miguel Danielson,FACP Office Visit 11/27/2011 4:20p [facility] [place], [address] 780.79 - Miguel Danielson,FACP 571.9 401.1 268.9 Office Visit 02/21/2011 10:40a DO Not Use [facility], [address] 571.9 Nate Danielson,FACP 381.81 Office Visit 06/18/2010 11:00a DO Not Use [facility], [address] 780.79 Nate Danielson,FACP 571.9 Office Visit 05/04/2010 2:40p DO Not Use [facility], [address] 599.72 Nate Danielson,FACP Office Visit 12/27/2009 2:40p DO Not Use [facility], [address] 530.81 Nate Danielson,FACP 780.79 571.9 Office Visit 05/26/2009 2:40p DO Not Use [facility], [address] V70.0 Nate Danielson,FACP 327.23 401.1 Office Visit 02/09/2009 9:40a DO Not Use [facility] [place], [address] 401.1 Nate Garcia.Nicolle,FACP 724.3 Office Visit 11/09/2008 9:20a DO Not Use [facility], [address] 571.40 Nate Garcia.Nicolle,FACP 401.1 780.71 Office Visit 05/11/2008 11:00a DO Not Use [facility] [address] 780.79 Nate Danielson,FACP 573.3 314.00 Office Visit 02/22/2008 9:30a DO Not Use [facility] [place], [address] 719.45 Nate Garcia.Nicolle Office Visit 12/25/2007 10:30a DO [place] [address] 346.80 [facility] 780.71 401.1 427.31 Office Visit 11/18/2007 2:40p DO Not Use [facility], [address] 780.71 Nate Danielson,FACP 780.57 314.00 Office Visit 06/26/2007 12:00p DO Not Use [facility] [place], [address] 780.57 Nate Garcia.Nicolle,FACP 314.00 780.71 401.1 427.31 719.42 Plan of Care Future Appointment(s):06/11/2018 10:20 am - Thanh Gunn M.D.,FACP at [facility] Medicine - [address]05/07/2018 - Melo Trevino MDK35.32 Acute appendicitis with perf and loc peritonitis, w/o abscsFollow up:None neededInstructions:call if fever or worsening abdominal pain
--- NOTE | 2018-05-10 13:07 | ED ---
GI/ HPI - HPI Summary HPI Summary: The patient is a 57 y/o F [facility] [place] by with a chief complaint of pain with bowel movements starting a week ago. One week ago, he had an emergency appendectomy performed by Dr. Trevino. After the surgery, the pt noticed that excreting stool was painful. Immediately after the procedure, his BMs started with episodes of loose diarrhea, which he assumed was from the medications he was taking. His BMs have not returned to normal as they are still soft and painful. He describes the pain as starting before he defecates, but the pain persists until he is able to relieve himself. He is currently not in any pain, but he reports that he was in so much pain this morning that he had to stay standing to go to the bathroom because it hurt to sit down. He also states that he became dizzy at this time. He has hx of fatty liver and GERD, but no other GI disorders. - History of Current Complaint Chief Complaint: EDRectalPain Time Seen by Provider: 05/10/18 12:47 Stated Complaint: PAIN WHEN GOING TO BATHROOM Hx Obtained From: Patient Onset/Duration: Started Days Ago - a week ago, Still Present Timing: Lasting Days - starting a week ago Severity: Moderate Current Severity: None Pain Intensity: 0 Location of Pain: Rectal Associated Signs and Symptoms: Positive: Dizziness, Rectal Pain, Diarrhea Aggravating Factor(s): Bowel Movement Alleviating Factor(s): Bowel Movements - Additional Pertinent History Primary Care Physician: [id number] - Allergy/Home Medications Allergies/Adverse Reactions: Allergies Allergy/AdvReac Type Severity Reaction Status Date / Time erythromycin base Allergy Unknown Verified 05/10/18 12:05 Reaction Details PMH/Surg Hx/FS Hx/Imm Hx Endocrine/Hematology History: Denies: Hx Diabetes, Hx Thyroid Disease Cardiovascular History: Reports: Hx Hypertension Respiratory History: Denies: Hx Asthma, Hx Chronic Obstructive Pulmonary Disease (COPD) GI History: Reports: Hx Gastroesophageal Reflux Disease, Other GI Disorders - fatty liver Denies: Hx Ulcer History: Denies: Hx Renal Disease Sensory History: Reports: Hx Contacts or Glasses Denies: Hx Hearing Aid Opthamlomology History: Reports: Hx Contacts or Glasses - Surgical History Surgery Procedure, Year, and Place: LIVER BIOPSY;. append[place] [facility] [place]ino, April 2018 Hx Anesthesia Reactions: No Infectious Disease History: No Infectious Disease History: Denies: Hx Hepatitis, Hx Human Immunodeficiency Virus (HIV), Traveled Outside the [place] in Last 30 Days - Family History Known Family History: Positive: Hypertension - Social History Alcohol Use: None Substance Use Type: Reports: Marijuana Smoking Status (MU): Never Smoked Tobacco Have You Smoked in the Last Year: No Review of Systems Positive: Diarrhea - loose stool transitioning into softer stool, but not formed , Other - rectal pain with BM Neurological: Other - dizziness All Other Systems Reviewed And Are Negative: Yes Physical Exam - Summary Physical Exam Summary: Appearance: The patient is well-nourished in no acute distress and in no acute pain. Skin: The skin is warm and dry and skin color reflects adequate perfusion. HEENT: The head is normocephalic and atraumatic. The pupils are equal and reactive. The conjunctivae are clear and without drainage. Nares are patent and without drainage. Mouth reveals moist mucous membranes and the throat is without erythema and exudate. The external ears are intact. The ear canals are patent and without drainage. The tympanic membranes are intact. Neck: The neck is supple with full range of motion and non-tender. There are no carotid bruits. There is no neck vein distension. Respiratory: Chest is non-tender. Lungs are clear to auscultation and breath sounds are symmetrical and equal. Cardiovascular: Heart is regular rate and rhythm. There is no murmur or rub auscultated. There is no peripheral edema and pulses are symmetrical and equal. Abdomen: The abdomen is soft and non-tender. There are normal bowel sounds heard in all four quadrants and there is no organomegaly palpated. Rectal Exam: No remarkable findings. Musculoskeletal: There is no back tenderness noted. Extremities are non-tender with full range of motion. There is good capillary refill. There is no peripheral edema or calf tenderness elicited. Neurological: Patient is alert and oriented to person, place and time. The patient has symmetrical motor strength in all four extremities. Cranial nerves are grossly intact. Deep tendon reflexes are symmetrical and equal in all four extremities. Psychiatric: The patient has an appropriate affect and does not exhibit any anxiety or depression. Triage Information Reviewed: Yes Vital Signs On Initial Exam: Initial Vitals Temp Pulse Resp BP Pulse Ox 97.3 F 65 14 135/88 98 05/10/18 12:06 05/10/18 12:06 05/10/18 12:06 05/10/18 12:06 05/10/18 12:06 Vital Signs Reviewed: Yes Diagnostics - Vital Signs Vital Signs Temp Pulse Resp BP Pulse Ox 05/10/18 12:06 97.3 F 65 14 135/88 98 - Laboratory Result Diagrams: 05/10/18 13:06 05/10/18 13:06 Lab Statement: Any lab studies that have been ordered have been reviewed, and results considered in the medical decision making process. - CT CT Abd/Pel CT Interpretation: Positive (See Comments) - Some minimal infiltration of fat is noted in the right lower quadrant where prior appendix has been removed. There may be some minimal postoperative change with noevidence of periappendiceal collections although some minimal phlegmon is noted. Cortical cyst is noted in the left kidney. There is early airspace disease in the right lung base which may represent early pneumonia. Clinical correlation is suggested. ED physician has reviewed this report. CT Interpretation Completed By: Radiologist ILEANA Course/Dx - Course Course Of Treatment: Mr. Ha presented to the emergency department complaining that ever since he had his appendix taken out last week, he has had rectal pain just prior to defecating and while defecating. It hasn't really changed but it has been almost a week. He denies any fever or chills, hematochezia or nausea/vomiting. His laboratory work was remarkable only for a mildly elevated CRP consistent with previous surgery and a CT scan of his abdomen was unremarkable. I discussed it with Dr. Campuzano and he recommended follow-up with Dr. Trevino tomorrow. - Diagnoses Provider Diagnoses: Rectal pain - Physician Notifications Discussed Care Of Patient With: Rakan Campuzano Time Discussed With Above Provider: 12:45 Instructed by Provider To: Other - I consulted with Dr. Campuzano, who reported that the patient had an appendectomy a week ago performed by Dr. Trevino. He recommends lab work and a CT Abd/Pel. Discharge - Sign-Out/Discharge Documenting (check all that apply): Patient Departure - Patient will be discharged home. - Discharge Plan Condition: Stable Disposition: HOME Prescriptions: Docusate CAP* [Colace Cap*] 100 mg PO BEDTIME PRN #10 cap PRN Reason: Constipation Patient Education Materials: Rectal Pain (ED) Referrals: Thanh Gunn MD [Primary Care Provider] - 3 Days Melo Trevino MD [Medical Doctor] - 1 Day Additional Instructions: Please take your medications as prescribed. Follow up with Dr. Trevino, [phone], tomorrow. Please follow up with your primary care provider in 2-3 days. Return to the emergency department for any new or worsening symptoms. - Billing Disposition and Condition Condition: STABLE Disposition: Home - Attestation Statements Document Initiated by Everett: Yes Documenting Scribe: Mey Mistry Provider For Whom Everett is Documenting (Include Credential): Dr. Nate Mcgill MD Scribe Attestation: Brit, nancy Fitzpatrickibed for Dr. Nate Mcgill MD on 05/10/18 at 1842. Scribe Documentation Reviewed: Yes Provider Attestation: The documentation as recorded by the Mey salgado accurately reflects the service I personally performed and the decisions made by me, Dr. Nate Mcgill MD
[2018-05-10 13:25] LABS: Hematocrit 44 % (42-52); Hemoglobin 14.4 g/dl (14.0-18.0); Mean Corpuscular HGB Conc 33 g/dl (31-36); Mean Corpuscular Hemoglobin 29 pg (27-31); Mean Corpuscular Volume 89 fL (80-94); Mean Platelet Volume 7.4 um3 (7.4-10.4); Platelet Count 355 10^3/ul (150-450); Red Blood Count 4.95 10^6/ul (4.00-5.40); Red Cell Distribution Width 15 % (10.5-15); White Blood Count 10.2 10^3/ul (3.5-10.8)
[2018-05-10 13:40] LABS: EGFR Non-African American 66.4 (>60)
[2018-05-10 13:49] LABS: ABS Basophils 0.1 10^3/ul (0-0.2); ABS Eosinophils 0.1 10^3/ul (0-0.6); ABS Lymphocytes 1.7 10^3/ul (1.0-4.8); ABS Monocytes 0.6 10^3/ul (0-0.8); ABS Neutrophils 7.7 10^3/ul (1.5-7.7)
[2018-05-10 13:52] LABS: ABS Basophils 0 10^3/ul (0-0.2); ABS Neutrophils 7.8 10^3/ul (1.5-7.7); Monocytes % 5 % (0-7)
--- NOTE | 2018-05-10 14:18 | RAD ---
Indication: Lower abdominal pain. Contrast: Administered 121.0 ml of OMNIPAQUE 300 mg/ml CT of the abdomen and pelvis was performed after IV contrast administration. No oral contrast was administered. Coronal and sagittal reconstructed images were obtained. The lung bases demonstrate some scarring in the left lung base. There may BE early airspace disease in the right lung base with a small right pleural effusion. I cannot totally exclude pneumonia in the right base. The heart demonstrates no pericardial effusion. The liver is normal in size. It is diffusely decreased in density consistent with hepatic steatosis. The gallbladder demonstrates no calcified gallstones. No pericholecystic fluid or wall thickening is identified. Pancreas demonstrates no mass or pancreatic duct dilatation. The common duct is not dilated. The spleen is normal in size. Accessory splenule is noted at the splenic hilum. The spleen is normal in size. Kidneys demonstrate symmetric nephrograms without hydronephrosis. Cortical cyst is noted in the left kidney measuring 2.1 cm. No hydronephrosis is noted. There are patient has had surgery in the right lower quadrant presumably bowel surgery. There is some minimal infiltration of fat and thickening of the lateral conal fascia which likely represents postoperative change. No definite free fluid is identified. No abnormal fluid collections are noted. No free air is noted. CT of the pelvis demonstrates urinary bladder, prostate and seminal vesicles to be unremarkable. No hernias are noted. Extensive diverticulosis is noted without definite evidence of diverticulitis. IMPRESSION: Some minimal infiltration of fat is noted in the right lower quadrant where prior appendix has been removed. There may be some minimal postoperative change with no evidence of periappendiceal collections although some minimal phlegmon is noted. Cortical cyst is noted in the left kidney. There is early airspace disease in the right lung base which may represent early pneumonia. Clinical correlation is suggested.
[2018-05-10 15:19] VITALS: BP 135/92
== END | disposition home or self-care (01) ==
LOC: ED 12:01
DX: K62.89 Other specified diseases of anus and rectum (principal); K21.9 Gastro-esophageal reflux disease without esophagitis; I10 Essential (primary) hypertension
CPT/HCPCS: 36415; 74177; 80053; 85025; 86140; 96374; 99282; Q9967

== ENCOUNTER 2020-02-16 16:32 | Observation (INO) ==
[2020-02-16 17:37] LABS: ABS Basophils 0.1 10^3/ul (0-0.2); ABS Eosinophils 0.3 10^3/ul (0-0.6); ABS Lymphocytes 1.9 10^3/ul (1.0-4.8); ABS Monocytes 0.7 10^3/ul (0-0.8); ABS Neutrophils 4.7 10^3/ul (1.5-7.7); Eosinophil % 3.9 %; Hematocrit 43 % (42-52); Hemoglobin 15.1 g/dL (14.0-18.0); Lymphocyte % 25.2 %; Mean Corpuscular HGB Conc 35 g/dL (31-36); Mean Corpuscular Hemoglobin 32 pg (27-31); Mean Corpuscular Volume 91 fL (80-94); Mean Platelet Volume 8.1 fL (7.4-10.4); Nucleated Red Blood Cells % 0.1; Platelet Count 216 10^3/uL (150-450); Red Blood Count 4.73 10^6 /uL (4.18-5.48); Red Cell Distribution Width 13 % (10-15); White Blood Count 7.7 10^3/uL (3.5-10.8)
[2020-02-16 18:34] LABS: Albumin 3.9 g/dL (3.2-5.2); Albumin/Globulin Ratio 1.6 (1-3); BUN/Creatinine Ratio 15.4 (8-20); Calcium 8.8 mg/dL (8.6-10.3); EGFR African American 88.8 (>60); EGFR Non-African American 73.4 (>60); Globulin 2.4 g/dL (2-4); Potassium 3.8 mmol/L (3.5-5.0); Total Bilirubin 0.4 mg/dL (0.2-1.0); Total Protein 6.3 g/dL (6.4-8.9)
[2020-02-16 20:53] LABS: HDL Cholesterol 23.4 mg/dL
[2020-02-17] MEDS ORDERED: Regadenoson 0.4 MG/5 ML SYRINGE ONE (07:48)
[2020-02-17] MEDS ORDERED: Aminophylline 25 MG/ML VIAL ONE (07:48)
[2020-02-17] MEDS ORDERED: Morphine 2 MG/ML SYRINGE IV PRN (09:59)
[2020-02-17 11:44] VITALS: BP 104/61
== END 2020-02-17 14:38 | disposition home or self-care (01) ==
LOC: MEDTELE 16:32 → ED 16:32 → MEDTELE 22:00
PROVIDERS: ADMIT Internal Medicine; ATTEND Internal Medicine